=== PATIENT | female | born 1940 | race Caucasian/White ===

== ENCOUNTER 2017-09-07 12:54 | Emergency (ER) | payer MEDICARE, MEDICAID ==
[~2017-09-07] VITALS: Ht 167.6 cm; Wt 58.1 kg
[~2017-09-07 12:54] MED LIST: ADVAIR 250/501 EA INH; AMARYL4 MG PO; ANTIVERT/2525 M1 PO; ASPI-COR81 M1 PO; COMBIVENT1 ARO IH; DAYPRO600 M1 PO; DIABETA5 MG PO; FLEXERIL10 MG PO; LEVOFLOXACIN500 MG PO; MOBIC7.5 MG PO; Metformin Hydr500 MG PO; NICODERM21 MG/24 H TD; PERCOCET 325 MG1 TA7 PO; PRAVACHOL20 MG PO; PREDNICOT20 MG PO; PREDNISONE10 MG PO; SPIRIVA -- 3018 MCG PO; SYMBICORT1 AE1 INH; TUSSI ORGANIDI PO; VICODIN 5/500 505 MG PO; VICODIN 500 MG-1 TAB PO; ZESTRIL20 MG PO
[2017-09-07] MEDS ORDERED: NYST SUSP PO (14:30)
== END 2017-09-07 14:33 | disposition home or self-care (01) ==
LOC: ED 12:54
DX: B37.0 Candidal stomatitis (principal); F17.200 Nicotine dependence, unspecified, uncomplicated; Z90.710 Acquired absence of both cervix and uterus; Z79.899 Other long term (current) drug therapy; Z79.82 Long term (current) use of aspirin; Z88.2 Allergy status to sulfonamides

== ENCOUNTER 2017-11-24 16:44 | Inpatient (IN) | payer MEDICARE, MEDICAID ==
[~2017-11-24] VITALS: Ht 160 cm; Wt 56.8 kg
--- NOTE | ~2017-11-24 | PR ---
[place], [place] PROGRESS NOTE NAME: [facility]OVANI GOEL [facility] [id number] UNIT #: [id number] ROOM: 412 DOCTOR: CHARLOTTE VARGAS MD,NATE BIRTHDATE: [birth year] DOS: 11/26/2017 SUBJECTIVE: She has been noted with significant improvement and acute respiratory symptoms in the last 24 hours with cough and wheezing The patient's all symptoms have been improving. There were no symptoms of chest pain. She has not been noted any fever or chills. OBJECTIVE: VITAL SIGNS: The patient showed the temperature noted normal, respiratory rate 18, heart rate was also noted normal at 75 this morning and blood pressure 134/55. Pulse oxygen saturation on room air was 98-100% saturation at rest. HEENT: No acute change. NECK: Supple. CARDIOVASCULAR: S1 and S2 audible. LUNGS: The patient was noted without any crackles, rhonchi, or wheezing. Breaths are noted mildly decreased bilaterally. ABDOMEN: Soft and nontender. EXTREMITIES: Without any acute edema. LABORATORY DATA: CBC on 11/26/2017, WBC 19.7, hemoglobin 10, and platelet count 507,000. BMP was noted, glucose 150, BUN 18, creatinine 1.06, and sodium 134. IMPRESSION: Leukocytosis induced with corticosteroid with clinical improvement noted. The patient with acute tracheobronchitis and exacerbation of chronic obstructive pulmonary disease progressively. Low grade nicotine abuse. PLAN OF TREATMENT: The patient could be considered for home discharge on oral antibiotics and tapering prednisone. Outpatient followup of the patient to be scheduled. Usual care, other supportive plan of therapy and care. NATE PORTER MD CM:PNTRANS [phone] NATE VARGAS MD 11/26/[id number] interface
--- NOTE | ~2017-11-24 | CON ---
[place], [place] REPORT OF CONSULTATION NAME: GEOVANI GOEL REDWOOD LLCT #: [id number] UNIT #: [id number] ROOM: 412 DOCTOR: NATE WILSON MD BIRTHDATE: [birth year] DOS: 11/25/2017 PULMONARY CONSULTATION, EVALUATION, AND MANAGEMENT CONSULTATION REQUESTED BY: Hospitalist service. REASON FOR CONSULTATION: COPD exacerbation. HISTORY OF PRESENT ILLNESS: This is a 77-year-old white female who has been noted with a past history of COPD, contacted my office yesterday. The patient was noted with initial symptoms of chest congestion and cough about a week ago. Over the weekend, she started experiencing significant increased shortness of breath with increased wheezing. The cough has been noted gradual and progressive. The patient's symptoms were noted significantly worsened. The patient contacted my office. I did speak with the patient and noted with audible wheezing. She was advised to come to the hospital Emergency Room. She came into the Emergency Room, was assessed, and admitted to the hospital for further medical management. The cough of the patient currently noted moderate to severe, which was noted partially decreased from yesterday. The patient denies symptoms of chest pain. Wheezing of the patient reported intermittently. REVIEW OF SYSTEMS: Remaining systems were reviewed and are as follows: CONSTITUTIONAL: Fatigue and tiredness noted without symptoms of fever or chills. EYES: Denies any burning, redness, or tenderness. EARS, NOSE, AND THROAT SYMPTOMS: Denies sore throat, hoarseness, otalgia, and postnasal drainage. CARDIOVASCULAR: Denies anginal pain, edema, pain of the lower extremity, or palpitation. GASTROINTESTINAL: No dysphagia, nausea, vomiting, diarrhea, abdominal pain, hematemesis, melena, or hematochezia. GENITOURINARY: No symptoms of dysuria, suprapubic pain, or hematuria. MUSCULOSKELETAL:. The patient denied any joint pain, redness, or tenderness. SKIN: Denies abnormal lesions or rashes. MUSCULOSKELETAL: Noted without any acute deformities. Remaining systems were reviewed of the patient and they were noted all negative. PAST MEDICAL HISTORY: The patient was known with history of: 1. COPD. 2. Type 2 diabetes mellitus. 3. 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 4. Hypercholesterolemia. PAST SURGICAL HISTORY: 1. Hysterectomy without ovaries. 2. Therapeutic bronchoscopy that was done for the patient in 2011. SOCIAL HISTORY: The patient is . 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 Smoking started for the patient at the age of [age] years old, up to 2 packs of cigarettes per day. The patient still smokes 3 cigarettes a day. FAMILY HISTORY: The patient's father at age of 72 years due to complications of acute myocardial infarction. Mother at age of 73 years due to complications of metastatic lung cancer. One of the patient's brothers from the liver disease as well. HOME MEDICATIONS: Reported use of Symbicort, Flexeril, Amaryl, Combivent Respimat, lisinopril, meclizine, Meloxicam, metformin, Nystatin, pravastatin, prednisone 20 mg, Spiriva, aspirin, and other p.r.n. medications. DRUG ALLERGIES: NOTED ALLERGY TO SULFA DRUGS. PHYSICAL EXAMINATION: GENERAL: A 77-year-old white female who has been currently noted awake and alert at this time, resting in the bed without any acute distress on this morning of examination. VITAL SIGNS: Height recorded as 5 feet 3 inches, weight of 125 pounds, BMI 22. Vital signs for the patient, which has been recorded, showed the temperature noted normal since admission, respiratory rate 18-32, heart rate of 112-111, sinus tachycardia, blood pressure 132/79-155/60. The pulse oxygen saturation of the patient recorded as 98% on 3 liters nasal cannula on admission at rest, and at room air 91% saturation on walking noted. HEENT: Examination shows head was atraumatic. Eyes nonicterus. NECK: Supple. Oral mucosa moist. CARDIOVASCULAR: S1, S2 is audible. LUNGS: The patient noted with general reduction in breath sounds with moderate expiratory wheezing noted. There were no crackles heard. ABDOMEN: Flat, soft, nontender. Bowel sounds present. EXTREMITIES: Without any edema, clubbing, or cyanosis. CENTRAL NERVOUS SYSTEM: Cranial nerves 2-12 intact. No focal deficit. MUSCULOSKELETAL: Without deformity. SKIN: No lesions or any rashes. LABORATORY DATA: CMP of the patient from 11/24/2017 320 noted as BUN normal, creatinine was normal, glucose 137. Sodium 133. CBC of the patient from 11/24/2017, WBC count 12.7, hemoglobin 11.9, hematocrit 36.9, platelet count 558,000. The troponin of the patient was noted yesterday as normal. CMP this morning, glucose 247, BUN 11, creatinine 1.03. Sodium 132. CBC of the patient this morning, WBC count 11.4, hemoglobin 10.6, platelet count 496,000. IMAGING STUDIES: One view chest x-ray, which was done in the Emergency Room was reviewed from PACS images shows changes of COPD without any acute pulmonary infiltration. IMPRESSION: 1. The patient will be currently admitted to the hospital, noted with acute exacerbation of chronic obstructive pulmonary disease with acute bronchitis. 2. Low grade nicotine abuse for the patient was still noted. [place], [place] REPORT OF CONSULTATION NAME: GEOVANI GOEL UNIT #: [id number] ROOM: [facility] DOCTOR: CHARLOTTE VARGAS MD,[facility] BIRTHDATE: [birth year] 3. Uncontrolled diabetes mellitus for this patient secondary to use of the corticosteroids as well. 4. History of essential hypertension and other medical illnesses. PLAN OF TREATMENT: The patient has been started on Solu-Medrol at 60 mg q. 2 hours. The dose will be decreased to 40 mg q. 2 hours. The patient states partial reduction and improvement in the respiratory symptoms noted in the last 24 hours. This would also help to reduce the hyperglycemia as well. The Solu-Medrol will be changed to 40 mg q. 8 hours. Continue Zithromax for the patient for medical management of the acute community-acquired bronchitis. Continue use of the DuoNeb q. 4 hours. Sputum for Gram stain and culture will be ordered. Nicotine replacement patches have been already started for the patient previously, which will be continued to overcome the nicotine withdrawal. Additional treatment changes will be made on the patient based on progression of the illness on this hospitalization. Thank you for allowing me to participate in the care of this patient. NATE PORTER MD CM:CONSTR:REPORT OF CONSULTATION 1133 12/03/17 0947 interface
[~2017-11-24 16:44] MED LIST changes: +NYST SUSP PO
[2017-11-24 16:53] VITALS: BP 155/60
[2017-11-24 17:24] LABS: BASO # 0.1 10*3/uL (0.0-0.1); EOS # 0.4 10*3/uL (0.0-0.4); HEMATOCRIT 36.9 % (37.0-47.0); HEMOGLOBIN 11.9 g/dl (12.0-16.0); LYMPH # 1.8 10*3/uL (1.3-4.4); LYMPH % 14.2 % (27.0-41.0); MEAN CORPUSCULAR HGB 26.4 pg (27.0-31.0); MEAN CORPUSCULAR HGB CONC 32.2 g/dl (33.0-37.0); MEAN PLATELET VOLUME 11.9 fl (9.6-12.3); MONO # 0.5 10*3/uL (0.1-1.0); NEUT # 9.7 10*3/uL (2.3-7.9); NEUT % 76.6 % (47.0-73.0); PLATELET COUNT AUTOMATED 558 10*3/uL (130-400); RED CELL DISTRI WIDTH 17.9 % (0-14.5); WHITE BLOOD COUNT 12.7 10*3/uL (4.8-10.8)
[2017-11-24 17:43] LABS: ALBUMIN 3.9 gm/dl (3.1-4.5); ALKALINE PHOSPHATASE 118 U/L (45-117); BUN 11 mg/dl (7-24); CHLORIDE 100 mmol/L (98-107); CREATININE 0.99 mg/dL (0.55-1.02); POTASSIUM 3.8 mmol/L (3.5-5.1); SGOT/AST 16 IU/L (3-35); SGPT/ALT 22 U/L (12-78); SODIUM 133 mmol/L (136-145); TOTAL PROTEIN 7.5 gm/dL (6.4-8.2)
[2017-11-24 18:55] VITALS: BP 143/51
[2017-11-25] VITALS: BP 131/48
[2017-11-25] MEDS ORDERED: AMLODIPINE BESY10 MG PO (03:57)
[2017-11-25] MEDS ORDERED: LISINOPRIL30 MG PO (03:57)
[2017-11-25 06:34] LABS: HEMATOCRIT 32.2 % (37.0-47.0); HEMOGLOBIN 10.6 g/dl (12.0-16.0); MEAN CELL VOLUME 80.9 fl (81.0-99.0); MEAN CORPUSCULAR HGB 26.6 pg (27.0-31.0); MEAN CORPUSCULAR HGB CONC 32.9 g/dl (33.0-37.0); MEAN PLATELET VOLUME 12.7 fl (9.6-12.3); PLATELET COUNT AUTOMATED 496 10*3/uL (130-400); RED BLOOD COUNT 3.98 10*6/uL (4.10-5.10); RED CELL DISTRI WIDTH 17.8 % (0-14.5); WHITE BLOOD COUNT 11.4 10*3/uL (4.8-10.8)
[2017-11-25 06:48] LABS: ALBUMIN 3.4 gm/dl (3.1-4.5); ALKALINE PHOSPHATASE 103 U/L (45-117); BUN 11 mg/dl (7-24); CHLORIDE 101 mmol/L (98-107); CHOLESTEROL 139 mg/dL (<200); CREATININE 1.03 mg/dL (0.55-1.02); HDL CHOLESTEROL 48 mg/dl (40-60); LDL CHOLESTEROL 77 mg/dL (9-159); PHOSPHOROUS 2.8 mg/dL (2.5-4.9); POTASSIUM 4.3 mmol/L (3.5-5.1); SGOT/AST 11 IU/L (3-35); SGPT/ALT 21 U/L (12-78); SODIUM 132 mmol/L (136-145); TOTAL PROTEIN 6.6 gm/dL (6.4-8.2); TRIGLYCERIDES 72 mg/dl (<150); VLDL CHOLESTEROL 14 mg/dL (6-40)
[2017-11-25 06:53] LABS: THYROID STIM HORMONE (HS) 0.853 uIU/ml (0.358-4.75)
[2017-11-25 07:15] LABS: BASOPHILS 1 % (0-1); BURR CELLS FEW; OVALOCYTES FEW; PLATELET SUFFICIENCY HIGH (NORMAL); TOTAL CELLS COUNTED 100 #CELLS
[2017-11-25 08:00] VITALS: BP 133/79
[2017-11-25 08:15] LABS: VITAMIN D, 25-HYDROXY 27.2 ng/mL (30-100)
[2017-11-25 12:00] VITALS: BP 122/57
[2017-11-25 16:00] VITALS: BP 137/56
[2017-11-25 20:00] VITALS: BP 125/48
[2017-11-26] VITALS: BP 126/48
[2017-11-26 06:19] LABS: HEMATOCRIT 30.9 % (37.0-47.0); MEAN CELL VOLUME 81.5 fl (81.0-99.0); MEAN CORPUSCULAR HGB 26.4 pg (27.0-31.0); MEAN CORPUSCULAR HGB CONC 32.4 g/dl (33.0-37.0); MEAN PLATELET VOLUME 12.3 fl (9.6-12.3); PLATELET COUNT AUTOMATED 507 10*3/uL (130-400); RED BLOOD COUNT 3.79 10*6/uL (4.10-5.10); RED CELL DISTRI WIDTH 18.7 % (0-14.5); WHITE BLOOD COUNT 19.7 10*3/uL (4.8-10.8)
[2017-11-26 06:50] LABS: BUN 18 mg/dl (7-24); CHLORIDE 102 mmol/L (98-107); CREATININE 1.06 mg/dL (0.55-1.02); POTASSIUM 4.6 mmol/L (3.5-5.1); SODIUM 134 mmol/L (136-145)
[2017-11-26 06:52] LABS: BURR CELLS FEW; PLATELET SUFFICIENCY HIGH (NORMAL); POLYCHROMASIA SLIGHT; TOTAL CELLS COUNTED 100 #CELLS
[2017-11-26 08:00] VITALS: BP 134/55
[2017-11-26] MEDS ORDERED: PREDNISONE10 MG PO (10:48)
[2017-11-26] MEDS ORDERED: VITAMIN D-32000 UNIT PO (10:48)
[2017-11-26] MEDS ORDERED: DOXYCYCLINE100 M3 PO (10:48)
== END 2017-11-26 11:57 | disposition home or self-care (01) | DRG 871 ==
LOC: ED 16:44 → 4E 18:12 → EDHOLD 18:12 → 4E 18:18
PROVIDERS: Emergency Medicine; Hospitalist; Student in an Organized Health Care Education/Training Program
DX: A41.9 Sepsis, unspecified organism (principal); J96.00 Acute respiratory failure, unspecified whether with hypoxia or hypercapnia; J18.9 Pneumonia, unspecified organism; E11.65 Type 2 diabetes mellitus with hyperglycemia; D68.59 Other primary thrombophilia; G47.34 Idiopathic sleep related nonobstructive alveolar hypoventilation; E87.1 Hypo-osmolality and hyponatremia; Z99.81 Dependence on supplemental oxygen; J44.1 Chronic obstructive pulmonary disease with (acute) exacerbation; J44.0 Chronic obstructive pulmonary disease with (acute) lower respiratory infection; D72.829 Elevated white blood cell count, unspecified; D64.9 Anemia, unspecified; J20.9 Acute bronchitis, unspecified; I10 Essential (primary) hypertension; R65.20 Severe sepsis without septic shock; F17.200 Nicotine dependence, unspecified, uncomplicated; E78.00 Pure hypercholesterolemia, unspecified; T38.0X5A Adverse effect of glucocorticoids and synthetic analogues, initial encounter; Z88.2 Allergy status to sulfonamides; Z79.899 Other long term (current) drug therapy; Z90.710 Acquired absence of both cervix and uterus; Z82.3 Family history of stroke; Z80.1 Family history of malignant neoplasm of trachea, bronchus and lung; Z71.6 Tobacco abuse counseling; Y92.89 Other specified places as the place of occurrence of the external cause

== ENCOUNTER → 2018-02-11 | Outpatient (CLI) | payer MEDICARE, MEDICAID ==
[~2018-02-11] MED LIST changes: +AMLODIPINE BESY10 MG PO; +DOXYCYCLINE100 M3 PO; +LISINOPRIL30 MG PO; +VENTOLIN 02.5 MG/3 M INH; +VITAMIN D-32000 UNIT PO
== END | disposition home or self-care (01) ==
LOC: RAD 09:52
DX: M54.5 Low back pain (principal)

== ENCOUNTER → 2018-03-05 | Outpatient (CLI) | payer MEDICARE, MEDICAID ==
[2018-03-08 11:03] LABS: ANTI-DSDNA ANTIBODIES 096339 <1 IU/mL (0-9); ANTI-RNP ANTIBODIES <0.2 AI (0.0-0.9); ANTICHROMATIN ANTIBODIES <0.2 AI (0.0-0.9); ANTISCLERODERMA-70 AB <0.2 AI (0.0-0.9); SJOGREN ANTI-SS-A <0.2 AI (0.0-0.9); SJOREN AB, ANTI-SS-B <0.2 AI (0.0-0.9)
[2018-03-08 14:09] LABS: ANGIOTENSIN-CONVERTING ENZYME <15 U/L (14-82); ATYPICAL PANCA <1:20 titer (Neg:<1:20); CYTOPLASMIC (C-ANCA) <1:20 titer (Neg:<1:20); IGG SUBCLASS 1 561 mg/dL (248-810); IGG SUBCLASS 2 107 mg/dL (130-555); IGG SUBCLASS 3 89 mg/dL (15-102); IGG SUBCLASS 4 23 mg/dL (2-96); IMMUNOGLOBULIN G, QNT 668 mg/dL (700-1600)
[2018-03-09 00:03] LABS: BLASTOMYCES ANTIBODY Negative (Neg:<1:1); IMMUNOGLOBULIN IgE 002170 12 IU/mL (0-100)
[2018-03-10 15:04] LABS: COCCIDIOIDES IGG 0.1 IV (<=0.9); COCCIDIOIDES IGM 0.2 IV (<=0.9)
== END | disposition home or self-care (01) ==
LOC: LAB 10:30
PROVIDERS: Internal Medicine Critical Care Medicine
DX: R91.8 Other nonspecific abnormal finding of lung field (principal)

== ENCOUNTER → 2018-03-11 | Day surgery (SDC) | payer MEDICARE, MEDICAID ==
[~2018-03-11] VITALS: Ht 165.1 cm; Wt 55.8 kg
--- NOTE | ~2018-03-11 | PROC NOTE ---
[place], [place] PROCEDURE NOTE [facility] [id number] UNIT #: [id number] ROOM: DOCTOR: CHARLOTTE VARGAS MD,NATE BIRTHDATE: [birth year] DOS: 03/11/2018 BRONCHOSCOPY NOTE PREOPERATIVE DIAGNOSIS: The patient with coughing, evidence of bronchiectasis in the right lower lobe with a cluster of nodules. Rule out atypical infection. POSTOPERATIVE DIAGNOSES: The patient with coughing, evidence of bronchiectasis in the right lower lobe with a cluster of nodules. Rule out atypical infection. COMPLICATIONS: None. BLOOD LOSS: None. PROCEDURE DESCRIPTION: Informed consent obtained from the patient. The patient brought to the OR. Conscious sedation was given by the Anesthesia Department in supine position. After that, the bronchoscope advanced to the airway into laryngeal area. Epiglottis and vocal cords were seen. Vocal cords moving symmetrical with movements. Bronchoscope advanced to the vocal cord and tracheal lumen. Tracheal lumen noted a small amount of secretions, suctioned out. Anya noted sharp. Bronchial washing was taken from all the endobronchial tree for this patient successfully including in the right lower lobe endobronchial tree. No complication noted. There were no endobronchial obstructive lesion. Procedure well tolerated by the patient. Postoperative findings were discussed with the patient's family members in the recovery room. NATE PORTER MD CM:PROCNOTE:PROCEDURE NOTE [id number] NATE VARGAS MD
[2018-03-11 08:15] VITALS: BP 138/62
[2018-03-11 09:05] VITALS: BP 134/61
[2018-03-11 09:20] VITALS: BP 114/55
[2018-03-11 09:35] VITALS: BP 144/66
[2018-03-12 16:06] LABS: ACID FAST SPEC PROCESSING Concentration (.)
[2018-04-19 14:05] LABS: ACID FAST CULTURE Negative (.)
== END | disposition home or self-care (01) ==
LOC: SDC 03-09 08:45
PROVIDERS: Internal Medicine Critical Care Medicine
DX: J47.9 Bronchiectasis, uncomplicated (principal); J45.40 Moderate persistent asthma, uncomplicated; I10 Essential (primary) hypertension; E11.9 Type 2 diabetes mellitus without complications; F17.210 Nicotine dependence, cigarettes, uncomplicated; Z79.4 Long term (current) use of insulin; Z90.710 Acquired absence of both cervix and uterus; Z79.899 Other long term (current) drug therapy; Z98.890 Other specified postprocedural states; Z88.2 Allergy status to sulfonamides

== ENCOUNTER → 2018-05-05 | Outpatient (CLI) | payer MEDICARE, MEDICAID ==
[2018-05-05 10:03] LABS: BASO # 0.2 10*3/uL (0.0-0.1); BASO % 1.6 % (0.0-1.0); EOS # 0.3 10*3/uL (0.0-0.4); EOS % 2.2 % (1.0-4.0); HEMATOCRIT 37.4 % (37.0-47.0); HEMOGLOBIN 12.2 g/dl (12.0-16.0); LYMPH # 1.5 10*3/uL (1.3-4.4); MEAN CELL VOLUME 79.1 fl (81.0-99.0); MEAN CORPUSCULAR HGB 25.8 pg (27.0-31.0); MEAN CORPUSCULAR HGB CONC 32.6 g/dl (33.0-37.0); MEAN PLATELET VOLUME 11.6 fl (9.6-12.3); MONO # 0.6 10*3/uL (0.1-1.0); MONO % 4.5 % (3.0-9.0); NEUT # 9.5 10*3/uL (2.3-7.9); NEUT % 78.5 % (47.0-73.0); PLATELET COUNT AUTOMATED 591 10*3/uL (130-400); RED BLOOD COUNT 4.73 10*6/uL (4.10-5.10); WHITE BLOOD COUNT 12.1 10*3/uL (4.8-10.8)
[2018-05-05 10:29] LABS: ALBUMIN 3.8 gm/dl (3.1-4.5); ALKALINE PHOSPHATASE 95 U/L (45-117); BUN 14 mg/dl (7-24); CHLORIDE 98 mmol/L (98-107); CREATININE 1.01 mg/dL (0.55-1.02); SGOT/AST 20 IU/L (3-35); SGPT/ALT 19 U/L (12-78); SODIUM 129 mmol/L (136-145); TOTAL PROTEIN 7.2 gm/dL (6.4-8.2)
== END | disposition home or self-care (01) ==
LOC: LAB 09:32
PROVIDERS: Family Medicine
DX: R19.7 Diarrhea, unspecified (principal)

== ENCOUNTER 2019-09-18 14:08 | Inpatient (IN) | payer MEDICARE, MEDICAID ==
[~2019-09-18] VITALS: Ht 165.1 cm; Wt 57.0 kg
[2019-09-18 14:23] VITALS: BP 167/81
[2019-09-18 15:09] LABS: BASO # 0.1 10*3/uL (0.0-0.1); BASO % 0.6 % (0.0-1.0); EOS # 0.3 10*3/uL (0.0-0.4); EOS % 2.3 % (1.0-4.0); HEMATOCRIT 37.4 % (37.0-47.0); HEMOGLOBIN 11.6 g/dl (12.0-16.0); LYMPH # 1.4 10*3/uL (1.3-4.4); MEAN CORPUSCULAR HGB 25.4 pg (27.0-31.0); MEAN PLATELET VOLUME 11.9 fl (9.6-12.3); MONO # 0.5 10*3/uL (0.1-1.0); MONO % 3.2 % (3.0-9.0); NEUT # 11.8 10*3/uL (2.3-7.9); NEUT % 83.1 % (47.0-73.0); PLATELET COUNT AUTOMATED 533 10*3/uL (130-400); RED BLOOD COUNT 4.56 10*6/uL (4.10-5.10); WHITE BLOOD COUNT 14.2 10*3/uL (4.8-10.8)
[2019-09-18 15:32] LABS: ACT PARTIAL THROMBO TIME 27.9 SECONDS (20.0-32.1); INTERNATIONAL NORM RATIO 0.9 (2.0-3.5)
[2019-09-18 15:36] LABS: ALBUMIN 3.9 gm/dl (3.1-4.5); ALKALINE PHOSPHATASE 125 U/L (45-117); BUN 16 mg/dl (7-24); CHLORIDE 102 mmol/L (98-107); CREATININE 0.95 mg/dL (0.55-1.02); SGOT/AST 11 IU/L (3-35); SGPT/ALT 19 U/L (12-78); SODIUM 136 mmol/L (136-145); TOTAL PROTEIN 7.3 gm/dL (6.4-8.2)
[2019-09-18 15:38] LABS: TROPONIN I < 0.015 ng/ml (<0.045)
[2019-09-18 15:48] VITALS: BP 142/55
--- NOTE | 2019-09-18 16:10 | NUR ---
REPORT GIVEN TO ALLIE BEAULIEU AT THIS TIME.
--- NOTE | 2019-09-18 16:19 | NUR ---
UNABLE TO TAKE PATIENT TO 4TH FLOOR. ROOM ASSIGNMENT AND MONITOR STTUS HAS BEEN CHANGED AFTER INTIAL ORDER SENT AND REPORT HAD ALREADY BEEN CALLED FOR FLOAT NURSE TO TAKE PATIENT UPSTAIRS. WILL AWAIT ANOTHER BED ASSIGNMENT.
--- NOTE | 2019-09-18 16:58 | NUR ---
RUNNING TRAY ORDERED PER PT REQUEST
--- NOTE | 2019-09-18 17:28 | NUR ---
msTime: 1728 A 79 year old female admitted to 5E under services of DEEJAY GARCES DO. Pt. arrived via bed from ER. Chief complaint: chest pain and sob. LUCITA CADENA.
[2019-09-18] MEDS ORDERED: MELOXICAM7.5 MG PO (18:02)
--- NOTE | 2019-09-18 18:07 | NUR ---
MED REC REVIEWED WITH PATIENT
--- NOTE | 2019-09-18 18:20 | NUR ---
DR HATHAWAY INFORMED OF CRITICAL LACTIC. PATIENT RECEIVING IVF. WILL MONITOR
--- NOTE | 2019-09-18 19:31 | NUR ---
PT INSTRUCTED ON USE OF IS. PT SOB AT THIS TIME. THEREFORE, PT UNABLE TO PERFORM AT [employer] PERFORMANCE. PT ABLE TO ACHIVE 500 CC AT THIS TIME. PT ABLE TO DEMONSTRATE PROPER TECHNIQUE. PT INSTRUCTED TO USE IS Q 1-2 HR W/A WHEN SHE BREATHING IS LESS LABORED.
--- NOTE | 2019-09-18 19:46 | NUR ---
PATIENT IS RESTING IN BED WITH EASY AND REGULAR RESPERS ON 4.5L O2 VIA NC. ASSESSMENT IS COMPLETE WITH NO C/O OR S/S OF DISTRESS NOTED AT THIS TIME. BED IS LOW, LOCKED, AND CALL LIGHT IS WITHIN REACH. IV FLUIDS COMPLETE. WILL CONTINUE TO MONITOR, SEE SHIFT ASSESSMENT.
[2019-09-18 20:00] VITALS: BP 155/58
--- NOTE | 2019-09-18 22:30 | NUR ---
DR. CARVER CONTACTED AT THIS TIME IN REGARDS TO PATIENT HOME MEDICATIONS BEING CONTINUED. ORDERED TO CONTINUE PRAVASTATIN AND MOBIC, HE WILL LOOK AT THE REST.
[2019-09-19] VITALS: BP 136/55
--- NOTE | 2019-09-19 01:30 | NUR ---
PATIENT IS SLEEPING WITH EASY AND REGULAR RESPERS ON 4.5L VIA NC. CALL LIGHT IS WITHIN REACH.
--- NOTE | 2019-09-19 04:42 | NUR ---
CHART CHECK COMPLETE.
[2019-09-19 06:46] LABS: HEMATOCRIT 33.4 % (37.0-47.0); HEMOGLOBIN 10.4 g/dl (12.0-16.0); MEAN CELL VOLUME 81.5 fl (81.0-99.0); MEAN CORPUSCULAR HGB 25.4 pg (27.0-31.0); MEAN CORPUSCULAR HGB CONC 31.1 g/dl (33.0-37.0); MEAN PLATELET VOLUME 12.3 fl (9.6-12.3); PLATELET COUNT AUTOMATED 505 10*3/uL (130-400); RED CELL DISTRI WIDTH 19.6 % (0-14.5); WHITE BLOOD COUNT 15.2 10*3/uL (4.8-10.8)
[2019-09-19 07:01] LABS: CREATININE 1.08 mg/dL (0.55-1.02); POTASSIUM 4.4 mmol/L (3.5-5.1)
[2019-09-19 07:21] LABS: TOTAL CELLS COUNTED 100 #CELLS
[2019-09-19 07:22] LABS: PLATELET SUFFICIENCY HIGH (NORMAL); POLYCHROMASIA SLIGHT
[2019-09-19 08:00] VITALS: BP 139/56
--- NOTE | 2019-09-19 09:00 | NUR ---
Musical Therapist in to talk to patient. Patient states lives at home alone with her family checking in on her. There are 5 steps in the home. Physician: Dr. Lew, Dr. Osorio, and Dr. Spicer [facility]: none Patient's level of ADLs: MINIMAL ASSIST Patient has working utilities: yes DME: cane, O2 @ 3L [place], nebulizer, O2 supplier [employer] Follow-up physician's appointment after d/c: will be made by the hospitalist nurse director upon discharge Does patient want to access PORTAL?: no Discharge plan discussed with patient and her granddaughter who is at the bedside. She lives at home alone with her family checking in on her. She is independent in her ADLs and ambulates with a cane. Discussed home health care services and she denies any home needs at this time. When medically stable she will be discharged to home. Her granddaughter will provide transportation on discharge. ERNESTO MONROY
--- NOTE | 2019-09-19 11:19 | NUR ---
PHYSICIAN WAS NOTIFIED OF DR. CHARLOTTE OROPEZA. RESPONSE OF NOTIFICATION WAS OK THANK YOU. TACHO PERRY
[2019-09-19 12:00] VITALS: BP 138/52
--- NOTE | 2019-09-19 13:29 | NUR ---
HR ELEVATED, DR CRAVER MADE AWARE.
[2019-09-19 16:00] VITALS: BP 126/64
--- NOTE | 2019-09-19 19:00 | NUR ---
ASSUMED CARE FOR THIS PT AT THIS TIME. NO C/O VOICED. SITTING ON SIDE OF BED. CALL LIGHT IN REACH.
[2019-09-19 20:00] VITALS: BP 131/52
[2019-09-20] VITALS: BP 131/81
[2019-09-20 06:44] LABS: BASO # 0.1 10*3/uL (0.0-0.1); BASO % 0.4 % (0.0-1.0); EOS # 0.1 10*3/uL (0.0-0.4); HEMATOCRIT 33.7 % (37.0-47.0); HEMOGLOBIN 10.6 g/dl (12.0-16.0); LYMPH % 7.3 % (27.0-41.0); MEAN CELL VOLUME 81.8 fl (81.0-99.0); MEAN CORPUSCULAR HGB 25.7 pg (27.0-31.0); MEAN CORPUSCULAR HGB CONC 31.5 g/dl (33.0-37.0); MEAN PLATELET VOLUME 11.8 fl (9.6-12.3); MONO # 0.5 10*3/uL (0.1-1.0); MONO % 3.4 % (3.0-9.0); NEUT # 12.1 10*3/uL (2.3-7.9); NEUT % 86.5 % (47.0-73.0); PLATELET COUNT AUTOMATED 522 10*3/uL (130-400); RED BLOOD COUNT 4.12 10*6/uL (4.10-5.10); RED CELL DISTRI WIDTH 19.6 % (0-14.5)
[2019-09-20 07:19] LABS: BUN 18 mg/dl (7-24); CHLORIDE 108 mmol/L (98-107); CREATININE 0.98 mg/dL (0.55-1.02); POTASSIUM 4.5 mmol/L (3.5-5.1); SODIUM 141 mmol/L (136-145)
[2019-09-20 08:00] VITALS: BP 139/57
[2019-09-20 12:00] VITALS: BP 140/53
[2019-09-20 13:19] LABS: ABG BASE EXCESS 3.9 mmol/L (-2.0-2.0); ARTERIAL BLOOD GAS PH 7.449 (7.35-7.45)
--- NOTE | 2019-09-20 13:30 | NUR ---
DR PORTER NOTIFIED OF ABG RESULTS.
[2019-09-20 16:00] VITALS: BP 142/55
--- NOTE | 2019-09-20 19:00 | NUR ---
ASSUMED CARE FOR THIS PT AT THIS TIME. PT SITTING IN BED WATCHING TV. CALL LIGHT IN REACH.
[2019-09-20 20:00] VITALS: BP 130/86
--- NOTE | 2019-09-20 23:01 | NUR ---
24 HR chart check completed.
--- NOTE | 2019-09-20 23:13 | NUR ---
PT MEDICATED W/RESTORIL TO HELP PROMOTE SLEEP. LIGHTS TURNED OFF, BLIND TURNED DOWN, AND DOOR CLOSED. CALL LIGHT IN REACH.
[2019-09-21] VITALS: BP 143/60
[2019-09-21 07:12] LABS: CHLORIDE 105 mmol/L (98-107); POTASSIUM 4.5 mmol/L (3.5-5.1); SODIUM 140 mmol/L (136-145)
[2019-09-21 07:19] LABS: BASO # 0.1 10*3/uL (0.0-0.1); BASO % 0.9 % (0.0-1.0); EOS # 0.4 10*3/uL (0.0-0.4); EOS % 3.2 % (1.0-4.0); HEMATOCRIT 38.2 % (37.0-47.0); HEMOGLOBIN 11.8 g/dl (12.0-16.0); LYMPH # 1.1 10*3/uL (1.3-4.4); LYMPH % 8.5 % (27.0-41.0); MEAN CELL VOLUME 81.8 fl (81.0-99.0); MEAN CORPUSCULAR HGB 25.3 pg (27.0-31.0); MEAN CORPUSCULAR HGB CONC 30.9 g/dl (33.0-37.0); MONO # 0.5 10*3/uL (0.1-1.0); MONO % 4.1 % (3.0-9.0); NEUT # 10.3 10*3/uL (2.3-7.9); NEUT % 81.9 % (47.0-73.0); PLATELET COUNT AUTOMATED 628 10*3/uL (130-400); RED BLOOD COUNT 4.67 10*6/uL (4.10-5.10); RED CELL DISTRI WIDTH 19.8 % (0-14.5); WHITE BLOOD COUNT 12.6 10*3/uL (4.8-10.8)
[2019-09-21 07:28] LABS: BUN 14 mg/dl (7-24)
[2019-09-21 08:00] VITALS: BP 149/64
--- NOTE | 2019-09-21 08:44 | NUR ---
IN TO SEE PATIENT.
--- NOTE | 2019-09-21 10:14 | NUR ---
PT ASSESSED FOR HOME O2. RESTING ON RA: SPO2 80% HR 103 RESTING ON 3 L NC: SPO2 91-92% HR 103 AMBULATING ON 3 L NC: SPO2 84% HR 105 AMBULATING ON 4 L NC: SPO2 88-87 HR 106 AMBULATING ON 6 L NC: SPO2 90-92% HR 106 PT REQUIRES 3 L NC AT REST AND 6 L NC WITH AMBULATION
--- NOTE | 2019-09-21 10:30 | NUR ---
Public [facility]itarian in to see patient. No new needs or request at this time. She denies any home needs. When medically stable she will be discharged to home.
--- NOTE | 2019-09-21 10:30 | NUR ---
IN TO SEE PATIENT.
[2019-09-21] MEDS ORDERED: DOXYCYCLINE100 M3 PO (10:34)
[2019-09-21] MEDS ORDERED: PREDNISONE10 MG PO (10:34)
[2019-09-21] MEDS ORDERED: DEBROX15 ML OT (10:42)
[2019-09-21 12:00] VITALS: BP 128/56
--- NOTE | 2019-09-21 14:38 | NUR ---
PATIENT WAITING FOR 02 TANK TO ARRIVE PER ORDER PRIOR TO BEING DISCHARGED.
--- NOTE | 2019-09-21 17:01 | NUR ---
Discharge instructions reviewed with patient/family. Patient receptive and verbalizes understanding. Follow-up care arranged. Written instructions given to patient/family. LUCITA CADENA.
== END 2019-09-21 17:01 | disposition home or self-care (01) | DRG 871 ==
LOC: ED 14:08 → 5E 15:26 → EDHOLD 15:26 → 4E 15:59 → 5E 16:19
PROVIDERS: Emergency Medicine; Family Medicine; Internal Medicine Critical Care Medicine; Student in an Organized Health Care Education/Training Program; ADMIT Emergency Medicine
DX: A41.9 Sepsis, unspecified organism (principal); J96.01 Acute respiratory failure with hypoxia; J18.9 Pneumonia, unspecified organism; J44.1 Chronic obstructive pulmonary disease with (acute) exacerbation; E87.2 Acidosis; D68.59 Other primary thrombophilia; J44.0 Chronic obstructive pulmonary disease with (acute) lower respiratory infection; R65.20 Severe sepsis without septic shock; D64.9 Anemia, unspecified; I10 Essential (primary) hypertension; E78.5 Hyperlipidemia, unspecified; E11.65 Type 2 diabetes mellitus with hyperglycemia; G47.34 Idiopathic sleep related nonobstructive alveolar hypoventilation; F41.1 Generalized anxiety disorder; J20.9 Acute bronchitis, unspecified; E78.00 Pure hypercholesterolemia, unspecified; R91.8 Other nonspecific abnormal finding of lung field; Z99.81 Dependence on supplemental oxygen; Z87.891 Personal history of nicotine dependence; Z88.2 Allergy status to sulfonamides; Z90.710 Acquired absence of both cervix and uterus; Z80.1 Family history of malignant neoplasm of trachea, bronchus and lung; Z82.49 Family history of ischemic heart disease and other diseases of the circulatory system; Z79.82 Long term (current) use of aspirin; Z79.899 Other long term (current) drug therapy

== ENCOUNTER → 2020-07-10 | Outpatient (CLI) | payer MEDICARE, MEDICAID ==
[~2020-07-10] MED LIST changes: +DEBROX15 ML OT; +MELOXICAM7.5 MG PO
== END | disposition home or self-care (01) ==
LOC: RAD 10:23
PROVIDERS: ATTEND Family Medicine
DX: M47.816 Spondylosis without myelopathy or radiculopathy, lumbar region (principal); M48.061 Spinal stenosis, lumbar region without neurogenic claudication; M41.86 Other forms of scoliosis, lumbar region; I70.0 Atherosclerosis of aorta

== ENCOUNTER → 2021-05-16 | Outpatient (CLI) | payer MEDICARE, MEDICAID ==
[2021-05-16 12:56] LABS: BUN 13 mg/dl (7-24); CHLORIDE 98 mmol/L (98-107); CREATININE 0.96 mg/dL (0.55-1.02); POTASSIUM 4.2 mmol/L (3.5-5.1); SODIUM 131 mmol/L (136-145)
== END | disposition home or self-care (01) ==
LOC: LAB 12:08
PROVIDERS: Physical Therapist; ATTEND Family Medicine
DX: E87.1 Hypo-osmolality and hyponatremia (principal)

== ENCOUNTER 2022-01-12 13:09 | Emergency (ER) | payer MEDICARE, MEDICAID ==
[~2022-01-12] VITALS: Wt 49.9 kg
[~2022-01-12 13:09] MED LIST changes: +NAPROXEN250 MG PO; +OMNICEF300 MG PO; +OXYGEN NAS; +SYMB160 INH; -SYMBICORT1 AE1 INH; +ZITHROMAX250 MG PO
[2022-01-12 13:55] LABS: BASO # 0.1 10*3/uL (0.0-0.1); BASO % 0.6 % (0.0-1.0); EOS # 0.3 10*3/uL (0.0-0.4); EOS % 1.6 % (1.0-4.0); HEMATOCRIT 37.6 % (37.0-47.0); LYMPH # 1.1 10*3/uL (1.3-4.4); LYMPH % 6.2 % (27.0-41.0); MEAN CELL VOLUME 80.2 fl (81.0-99.0); MEAN CORPUSCULAR HGB 25.2 pg (27.0-31.0); MEAN CORPUSCULAR HGB CONC 31.4 g/dl (33.0-37.0); MEAN PLATELET VOLUME 11.8 fl (9.6-12.3); MONO # 0.5 10*3/uL (0.1-1.0); MONO % 2.8 % (3.0-9.0); NEUT # 15.5 10*3/uL (2.3-7.9); NEUT % 87.6 % (47.0-73.0); PLATELET COUNT AUTOMATED 774 10*3/uL (130-400); RED BLOOD COUNT 4.69 10*6/uL (4.10-5.10); RED CELL DISTRI WIDTH 20.6 % (0-14.5); WHITE BLOOD COUNT 17.7 10*3/uL (4.8-10.8)
[2022-01-12 14:10] LABS: CREATININE 1.17 mg/dL (0.55-1.02); TOTAL PROTEIN 6.8 gm/dL (6.4-8.2)
== END 2022-01-12 16:27 | disposition home or self-care (01) ==
LOC: ED 13:09
PROVIDERS: Physician Assistant
DX: E11.65 Type 2 diabetes mellitus with hyperglycemia (principal); J44.9 Chronic obstructive pulmonary disease, unspecified; I10 Essential (primary) hypertension; E78.00 Pure hypercholesterolemia, unspecified

== ENCOUNTER → 2022-12-11 | Outpatient (CLI) | payer OTHER, MEDICAID | LOC: RAD 12:31 | PROVIDERS: ATTEND Family Medicine | DX: M47.817 Spondylosis without myelopathy or radiculopathy, lumbosacral region (principal); M25.78 Osteophyte, vertebrae; M43.8X7 Other specified deforming dorsopathies, lumbosacral region; M48.061 Spinal stenosis, lumbar region without neurogenic claudication; I70.0 Atherosclerosis of aorta; I70.202 Unspecified atherosclerosis of native arteries of extremities, left leg ==

== ENCOUNTER 2023-01-19 13:59 | Emergency (ER) | payer OTHER, MEDICAID ==
[~2023-01-19] VITALS: Ht 162.5 cm; Wt 45.8 kg
[2023-01-19 15:42] LABS: HEMATOCRIT 33.2 % (37.0-47.0); MEAN CELL VOLUME 84.1 fl (81.0-99.0); MEAN CORPUSCULAR HGB 26.1 pg (27.0-31.0); MEAN PLATELET VOLUME 11.9 fl (9.6-12.3); PLATELET COUNT AUTOMATED 462 10*3/uL (130-400); RED BLOOD COUNT 3.95 10*6/uL (4.10-5.10); RED CELL DISTRI WIDTH 18.6 % (0-14.5); WHITE BLOOD COUNT 14.8 10*3/uL (4.8-10.8)
[2023-01-19 15:47] LABS: MANUAL DIFF REFLEX YES
[2023-01-19 16:06] LABS: BASOPHILS 1 % (0-1); TOTAL CELLS COUNTED 100 #CELLS
[2023-01-19 16:07] LABS: ALKALINE PHOSPHATASE 114 U/L (46-116); BUN 26 mg/dl (9-23); CHLORIDE 96 mmol/L (98-107); OVALOCYTES FEW; PLATELET SUFFICIENCY HIGH (NORMAL); POLYCHROMASIA SLIGHT; POTASSIUM 4.7 mmol/L (3.4-5.1); TOXIC GRANULATION SLIGHT
[2023-01-19 16:09] LABS: SGPT/ALT < 7 U/L (10-49)
[2023-01-19] MEDS ORDERED: PREDNISONE20 M1 PO (17:39)
[2023-01-19] MEDS ORDERED: DOXYCYCLINE HY100 M3 PO (17:39)
== END 2023-01-19 17:58 | disposition home or self-care (01) ==
LOC: ED 13:59
PROVIDERS: Nurse Practitioner Family
DX: J06.9 Acute upper respiratory infection, unspecified (principal); R53.83 Other fatigue; J44.9 Chronic obstructive pulmonary disease, unspecified; E11.9 Type 2 diabetes mellitus without complications; I10 Essential (primary) hypertension; E78.00 Pure hypercholesterolemia, unspecified; Z88.2 Allergy status to sulfonamides; Z88.8 Allergy status to other drugs, medicaments and biological substances; Z90.710 Acquired absence of both cervix and uterus; Z98.890 Other specified postprocedural states; Z72.0 Tobacco use

== ENCOUNTER → 2023-02-10 | Outpatient (CLI) | payer OTHER, MEDICAID ==
[~2023-02-10] MED LIST changes: +DOXYCYCLINE HY100 M3 PO; +PREDNISONE20 M1 PO
== END | disposition home or self-care (01) ==
LOC: RAD 09:07
PROVIDERS: ATTEND Family Medicine
DX: M47.816 Spondylosis without myelopathy or radiculopathy, lumbar region (principal)

== ENCOUNTER → 2023-05-18 | Outpatient (CLI) | payer OTHER, MEDICAID | END | disposition home or self-care (01) | LOC: RAD 12:28 | PROVIDERS: ATTEND Family Medicine | DX: J44.1 Chronic obstructive pulmonary disease with (acute) exacerbation (principal) ==

== ENCOUNTER → 2023-07-29 | Outpatient (CLI) | payer OTHER, MEDICAID | END | disposition home or self-care (01) | LOC: US 01:27 | PROVIDERS: ATTEND Family Medicine | DX: N18.9 Chronic kidney disease, unspecified (principal); N20.0 Calculus of kidney ==

== ENCOUNTER → 2023-11-23 | Outpatient (CLI) | payer OTHER, MEDICAID ==
[~2023-11-23] MED LIST changes: +CYCLOBENZAPRINE5 M3 PO; +NICODERM CQ1 EAC2 TD; +SPIRIVA RESPIMAT4 GM INH; +VIBRA-TAB100 MG PO
== END | disposition home or self-care (01) ==
LOC: US 15:52
PROVIDERS: ATTEND Student in an Organized Health Care Education/Training Program
DX: R22.43 Localized swelling, mass and lump, lower limb, bilateral (principal)

== ENCOUNTER 2023-12-13 21:10 | Emergency (ER) | payer OTHER, MEDICAID ==
[~2023-12-13] VITALS: Ht 152.4 cm; Wt 39.9 kg
[2023-12-13] MEDS ORDERED: OXYCODONE HCL5 MG PO (21:23)
[2023-12-13 21:37] LABS: BASO # 0.2 10*3/uL (0.0-0.1); BASO % 0.9 % (0.0-1.0); EOS # 0.3 10*3/uL (0.0-0.4); EOS % 1.3 % (1.0-4.0); HEMATOCRIT 36.9 % (37.0-47.0); LYMPH # 1.2 10*3/uL (1.3-4.4); LYMPH % 6.1 % (27.0-41.0); MEAN CELL VOLUME 84.8 fl (81.0-99.0); MEAN CORPUSCULAR HGB CONC 30.6 g/dl (33.0-37.0); MEAN PLATELET VOLUME 10.4 fl (9.6-12.3); MONO # 0.9 10*3/uL (0.1-1.0); MONO % 4.8 % (3.0-9.0); NEUT # 16.8 10*3/uL (2.3-7.9); NEUT % 86.1 % (47.0-73.0); PLATELET COUNT AUTOMATED 885 10*3/uL (130-400); RED BLOOD COUNT 4.35 10*6/uL (4.10-5.10); RED CELL DISTRI WIDTH 17.2 % (0-14.5); WHITE BLOOD COUNT 19.5 10*3/uL (4.8-10.8)
[2023-12-13 22:04] LABS: ALKALINE PHOSPHATASE 102 U/L (46-116); BUN 23 mg/dl (9-23); CHLORIDE 105 mmol/L (98-107); LIPASE 49 U/L (12-53); POTASSIUM 4.1 mmol/L (3.4-5.1); TOTAL PROTEIN 6.4 gm/dL (6.0-8.0)
[2023-12-13 22:05] LABS: SGPT/ALT < 7 U/L (5-49)
[2023-12-14] MEDS ORDERED: SODIUM CHLORIDE 0.9% 1,000 ML IV ONE (01:00)
== END 2023-12-14 05:26 | disposition short-term general hospital (02) ==
LOC: ED 21:10
PROVIDERS: Internal Medicine
DX: K56.1 Intussusception (principal); D47.3 Essential (hemorrhagic) thrombocythemia; D72.829 Elevated white blood cell count, unspecified; N28.89 Other specified disorders of kidney and ureter; E11.22 Type 2 diabetes mellitus with diabetic chronic kidney disease; I12.9 Hypertensive chronic kidney disease with stage 1 through stage 4 chronic kidney disease, or unspecified chronic kidney disease; N18.32 Chronic kidney disease, stage 3b; J44.9 Chronic obstructive pulmonary disease, unspecified; E78.00 Pure hypercholesterolemia, unspecified; R11.2 Nausea with vomiting, unspecified; R63.0 Anorexia; Z88.2 Allergy status to sulfonamides; Z88.8 Allergy status to other drugs, medicaments and biological substances; Z90.710 Acquired absence of both cervix and uterus; Z98.890 Other specified postprocedural states; Z72.0 Tobacco use

== ENCOUNTER → 2023-12-24 | Outpatient (CLI) | payer OTHER, MEDICAID ==
[~2023-12-24] MED LIST changes: +OXYCODONE HCL5 MG PO
== END | disposition home or self-care (01) ==
LOC: WOUNDCARE 02:45
PROVIDERS: ATTEND Nurse Practitioner Family
DX: L89.610 Pressure ulcer of right heel, unstageable (principal); E11.622 Type 2 diabetes mellitus with other skin ulcer; L97.512 Non-pressure chronic ulcer of other part of right foot with fat layer exposed; L97.522 Non-pressure chronic ulcer of other part of left foot with fat layer exposed; E11.22 Type 2 diabetes mellitus with diabetic chronic kidney disease; I12.9 Hypertensive chronic kidney disease with stage 1 through stage 4 chronic kidney disease, or unspecified chronic kidney disease; N18.32 Chronic kidney disease, stage 3b; I87.2 Venous insufficiency (chronic) (peripheral); E78.5 Hyperlipidemia, unspecified; E55.9 Vitamin D deficiency, unspecified; J44.9 Chronic obstructive pulmonary disease, unspecified; M16.12 Unilateral primary osteoarthritis, left hip; M47.816 Spondylosis without myelopathy or radiculopathy, lumbar region; L84 Corns and callosities; F17.290 Nicotine dependence, other tobacco product, uncomplicated; Z90.710 Acquired absence of both cervix and uterus; Z79.84 Long term (current) use of oral hypoglycemic drugs; Z79.82 Long term (current) use of aspirin; Z79.899 Other long term (current) drug therapy

== ENCOUNTER → 2023-12-29 | Outpatient (CLI) | payer OTHER, MEDICAID | END | disposition home or self-care (01) | LOC: WOUNDCARE 00:49 | PROVIDERS: ATTEND Nurse Practitioner Family | DX: E11.622 Type 2 diabetes mellitus with other skin ulcer (principal); L97.521 Non-pressure chronic ulcer of other part of left foot limited to breakdown of skin; L97.511 Non-pressure chronic ulcer of other part of right foot limited to breakdown of skin; L89.610 Pressure ulcer of right heel, unstageable; L84 Corns and callosities; E11.22 Type 2 diabetes mellitus with diabetic chronic kidney disease; I12.9 Hypertensive chronic kidney disease with stage 1 through stage 4 chronic kidney disease, or unspecified chronic kidney disease; N18.32 Chronic kidney disease, stage 3b; I87.2 Venous insufficiency (chronic) (peripheral); E78.5 Hyperlipidemia, unspecified; E55.9 Vitamin D deficiency, unspecified; J44.9 Chronic obstructive pulmonary disease, unspecified; M16.12 Unilateral primary osteoarthritis, left hip; M47.816 Spondylosis without myelopathy or radiculopathy, lumbar region; F17.290 Nicotine dependence, other tobacco product, uncomplicated; Z90.710 Acquired absence of both cervix and uterus; Z79.84 Long term (current) use of oral hypoglycemic drugs; Z79.82 Long term (current) use of aspirin; Z79.899 Other long term (current) drug therapy ==

== ENCOUNTER → 2024-01-15 | Outpatient (CLI) | payer OTHER, MEDICAID | END | disposition home or self-care (01) | LOC: WOUNDCARE 01-13 05:35 | PROVIDERS: ATTEND Nurse Practitioner Family | DX: L89.610 Pressure ulcer of right heel, unstageable (principal); E11.621 Type 2 diabetes mellitus with foot ulcer; L97.521 Non-pressure chronic ulcer of other part of left foot limited to breakdown of skin; I87.2 Venous insufficiency (chronic) (peripheral); E11.22 Type 2 diabetes mellitus with diabetic chronic kidney disease; I12.9 Hypertensive chronic kidney disease with stage 1 through stage 4 chronic kidney disease, or unspecified chronic kidney disease; N18.32 Chronic kidney disease, stage 3b; J44.9 Chronic obstructive pulmonary disease, unspecified; E78.5 Hyperlipidemia, unspecified; M85.80 Other specified disorders of bone density and structure, unspecified site; M19.90 Unspecified osteoarthritis, unspecified site; F17.200 Nicotine dependence, unspecified, uncomplicated; Z90.710 Acquired absence of both cervix and uterus ==

== ENCOUNTER → 2024-02-03 | Outpatient (CLI) | payer OTHER, MEDICAID | END | disposition home or self-care (01) | LOC: WOUNDCARE 01:27 | PROVIDERS: ATTEND Nurse Practitioner Family | DX: L89.610 Pressure ulcer of right heel, unstageable (principal); E11.621 Type 2 diabetes mellitus with foot ulcer; L97.522 Non-pressure chronic ulcer of other part of left foot with fat layer exposed; E11.22 Type 2 diabetes mellitus with diabetic chronic kidney disease; I12.9 Hypertensive chronic kidney disease with stage 1 through stage 4 chronic kidney disease, or unspecified chronic kidney disease; N18.32 Chronic kidney disease, stage 3b; I87.2 Venous insufficiency (chronic) (peripheral); J44.9 Chronic obstructive pulmonary disease, unspecified; E78.5 Hyperlipidemia, unspecified; E55.9 Vitamin D deficiency, unspecified; M16.12 Unilateral primary osteoarthritis, left hip; M47.816 Spondylosis without myelopathy or radiculopathy, lumbar region; F17.200 Nicotine dependence, unspecified, uncomplicated; Z90.710 Acquired absence of both cervix and uterus; Z79.82 Long term (current) use of aspirin; Z79.84 Long term (current) use of oral hypoglycemic drugs; Z79.899 Other long term (current) drug therapy ==

== ENCOUNTER → 2024-02-12 | Outpatient (CLI) | payer OTHER, MEDICAID ==
[2024-02-12 13:04] LABS: POTASSIUM 5.1 mmol/L (3.4-5.1); TOTAL PROTEIN 7.1 gm/dL (6.0-8.0)
== END | disposition home or self-care (01) ==
LOC: LAB 12:12
PROVIDERS: ATTEND Internal Medicine Cardiovascular Disease
DX: S91.301A Unspecified open wound, right foot, initial encounter (principal); E11.9 Type 2 diabetes mellitus without complications; I10 Essential (primary) hypertension; R60.0 Localized edema; X58.XXXA Exposure to other specified factors, initial encounter; Y93.89 Activity, other specified; Y92.89 Other specified places as the place of occurrence of the external cause; Y99.8 Other external cause status

== ENCOUNTER → 2024-02-18 | Outpatient (CLI) | payer OTHER, MEDICAID | END | disposition home or self-care (01) | LOC: WOUNDCARE 01:40 | PROVIDERS: ATTEND Nurse Practitioner Family | DX: E11.621 Type 2 diabetes mellitus with foot ulcer (principal); L97.521 Non-pressure chronic ulcer of other part of left foot limited to breakdown of skin; L89.610 Pressure ulcer of right heel, unstageable; E11.22 Type 2 diabetes mellitus with diabetic chronic kidney disease; I12.9 Hypertensive chronic kidney disease with stage 1 through stage 4 chronic kidney disease, or unspecified chronic kidney disease; N18.32 Chronic kidney disease, stage 3b; I87.2 Venous insufficiency (chronic) (peripheral); J44.9 Chronic obstructive pulmonary disease, unspecified; E78.5 Hyperlipidemia, unspecified; E55.9 Vitamin D deficiency, unspecified; M16.12 Unilateral primary osteoarthritis, left hip; M47.816 Spondylosis without myelopathy or radiculopathy, lumbar region; F17.200 Nicotine dependence, unspecified, uncomplicated; Z90.710 Acquired absence of both cervix and uterus; Z79.82 Long term (current) use of aspirin; Z79.84 Long term (current) use of oral hypoglycemic drugs; Z79.899 Other long term (current) drug therapy ==

== ENCOUNTER → 2024-02-29 | Outpatient (CLI) | payer OTHER, MEDICAID | END | disposition home or self-care (01) | LOC: WOUNDCARE 00:09 | PROVIDERS: ATTEND Nurse Practitioner Family | DX: E11.621 Type 2 diabetes mellitus with foot ulcer (principal); L97.521 Non-pressure chronic ulcer of other part of left foot limited to breakdown of skin; L89.623 Pressure ulcer of left heel, stage 3; L89.613 Pressure ulcer of right heel, stage 3; L84 Corns and callosities; E11.22 Type 2 diabetes mellitus with diabetic chronic kidney disease; I12.9 Hypertensive chronic kidney disease with stage 1 through stage 4 chronic kidney disease, or unspecified chronic kidney disease; N18.30 Chronic kidney disease, stage 3 unspecified; I87.2 Venous insufficiency (chronic) (peripheral); J44.9 Chronic obstructive pulmonary disease, unspecified; M16.12 Unilateral primary osteoarthritis, left hip; M47.816 Spondylosis without myelopathy or radiculopathy, lumbar region; E78.5 Hyperlipidemia, unspecified; E55.9 Vitamin D deficiency, unspecified; F17.200 Nicotine dependence, unspecified, uncomplicated; Z90.710 Acquired absence of both cervix and uterus; Z79.84 Long term (current) use of oral hypoglycemic drugs; Z79.82 Long term (current) use of aspirin ==

== ENCOUNTER → 2024-03-22 | Outpatient (CLI) | payer OTHER, MEDICAID | END | disposition home or self-care (01) | LOC: WOUNDCARE 01:44 | PROVIDERS: ATTEND Nurse Practitioner Family | DX: E11.621 Type 2 diabetes mellitus with foot ulcer (principal); L97.522 Non-pressure chronic ulcer of other part of left foot with fat layer exposed; L89.613 Pressure ulcer of right heel, stage 3; L89.623 Pressure ulcer of left heel, stage 3; L84 Corns and callosities; E11.22 Type 2 diabetes mellitus with diabetic chronic kidney disease; I12.9 Hypertensive chronic kidney disease with stage 1 through stage 4 chronic kidney disease, or unspecified chronic kidney disease; N18.32 Chronic kidney disease, stage 3b; I87.2 Venous insufficiency (chronic) (peripheral); J44.9 Chronic obstructive pulmonary disease, unspecified; M16.12 Unilateral primary osteoarthritis, left hip; M47.816 Spondylosis without myelopathy or radiculopathy, lumbar region; E78.5 Hyperlipidemia, unspecified; E55.9 Vitamin D deficiency, unspecified; F17.200 Nicotine dependence, unspecified, uncomplicated; Z90.710 Acquired absence of both cervix and uterus; Z79.84 Long term (current) use of oral hypoglycemic drugs; Z79.82 Long term (current) use of aspirin; Z79.899 Other long term (current) drug therapy ==

== ENCOUNTER 2024-04-09 14:41 | Inpatient (IN) | payer OTHER, MEDICAID ==
[~2024-04-09] VITALS: Ht 152.4 cm; Wt 45.1 kg
[2024-04-09 14:47] VITALS: BP 177/55
[2024-04-09] MEDS ORDERED: Ondansetron Hydrochloride 4 MG/2 ML VIAL IV ONE (14:55)
[2024-04-09] MEDS ORDERED: MORPHINE Sulfate 2 MG/ML SYR IV ONE (14:55)
[2024-04-09] MEDS ORDERED: SODIUM CHLORIDE 0.9% 1,000 ML IV ONE ×2 (14:55→18:30)
[2024-04-09 15:20] LABS: BASO % 0.9 % (0.0-1.0); EOS # 0.1 10*3/uL (0.0-0.4); EOS % 1.8 % (1.0-4.0); HEMATOCRIT 23.7 % (37.0-47.0); LYMPH # 1.2 10*3/uL (1.3-4.4); LYMPH % 26.6 % (27.0-41.0); MEAN CELL VOLUME 82.3 fl (81.0-99.0); MEAN CORPUSCULAR HGB 25.7 pg (27.0-31.0); MEAN CORPUSCULAR HGB CONC 31.2 g/dl (33.0-37.0); MEAN PLATELET VOLUME 10.6 fl (9.6-12.3); MONO # 0.2 10*3/uL (0.1-1.0); MONO % 3.8 % (3.0-9.0); NEUT % 66.5 % (47.0-73.0); PLATELET COUNT AUTOMATED 149 10*3/uL (130-400); RED BLOOD COUNT 2.88 10*6/uL (4.10-5.10); WHITE BLOOD COUNT 4.5 10*3/uL (4.8-10.8)
[2024-04-09 15:33] LABS: POTASSIUM 4.8 mmol/L (3.4-5.1)
[2024-04-09] MEDS ORDERED: FAMOTIDINE 50 ML IV ONE (15:50)
[2024-04-09] MEDS ORDERED: Pantoprazole Sodium 40 MG VIAL IV ONE (15:50)
[2024-04-09] MEDS ORDERED: HYDREA500 M1 PO (16:04)
[2024-04-09] MEDS ORDERED: COREG3.125 MG PO (16:07)
[2024-04-09] MEDS ORDERED: POTASSIUM CHLO20 ME3 PO (16:09)
[2024-04-09] MEDS ORDERED: LASIX20 MG PO (16:09)
[2024-04-09] MEDS ORDERED: ZESTRIL40 MG PO (16:10)
[2024-04-09] MEDS ORDERED: ACETAMINOPHEN 325 MG TAB PO PRN (18:15)
[2024-04-09] MEDS ORDERED: BISACODYL 10 MG SUPP R PRN (18:15)
[2024-04-09] MEDS ORDERED: ACETAMINOPHEN 650 MG SUPP R PRN (18:15)
[2024-04-09] MEDS ORDERED: Magnesium Hydroxide 30 ML UDC PO PRN (18:15)
[2024-04-09] MEDS ORDERED: Acetaminophen/Hydrocodone 5 MG/325 MG TABLET PO PRN (18:15)
[2024-04-09] MEDS ORDERED: BISACODYL 5 MG TAB PO PRN (18:15)
[2024-04-09 18:35] VITALS: BP 163/66
[2024-04-09] MEDS ORDERED: DEXTROSE 10 % IN WATER 250 ML IV PRN (18:45)
[2024-04-09 21:19] VITALS: BP 169/57
[2024-04-09 21:34] VITALS: BP 184/57
[2024-04-09] MEDS ORDERED: INSULIN LISPRO 1 UNIT/0.01 ML SQ SCH (22:00)
[2024-04-09] MEDS ORDERED: SODIUM CHLORIDE Nasal 44 ml bottle NAS PRN (22:25)
[2024-04-09] MEDS ORDERED: Ondansetron Hydrochloride 4 MG/2 ML VIAL IV PRN (22:25)
[2024-04-09 22:56] VITALS: BP 136/78
[2024-04-09] MEDS ORDERED: MORPHINE Sulfate 2 MG/ML SYR IV PRN (23:35)
[2024-04-10] VITALS (11 sets, daily range): BP systolic 144–173; BP diastolic 45–69
[2024-04-10] MEDS ORDERED: Albuterol Sulf/Ipratropium 3 ML VIAL NEB SCH (04:05)
[2024-04-10] MEDS ORDERED: BUDESONIDE 0.5 MG AMP NEB SCH (04:05)
[2024-04-10] MEDS ORDERED: Labetalol Hydrochloride 20 MG/4 ML SYR IV ONE (04:15)
[2024-04-10 05:27] LABS: ACT PARTIAL THROMBO TIME 27.5 SECONDS (20.0-32.1)
[2024-04-10 05:35] LABS: POTASSIUM 4.7 mmol/L (3.4-5.1)
[2024-04-10 06:00] LABS: MEAN CELL VOLUME 80.2 fl (81.0-99.0); MEAN CORPUSCULAR HGB 25.5 pg (27.0-31.0); MEAN CORPUSCULAR HGB CONC 31.8 g/dl (33.0-37.0); MEAN PLATELET VOLUME 10.8 fl (9.6-12.3); PLATELET COUNT AUTOMATED 126 10*3/uL (130-400); RED BLOOD COUNT 2.47 10*6/uL (4.10-5.10); RED CELL DISTRI WIDTH 24.1 % (0-14.5); WHITE BLOOD COUNT 2.6 10*3/uL (4.8-10.8)
[2024-04-10 06:11] LABS: HEMATOCRIT 19.8 % (37.0-47.0); MANUAL DIFF REFLEX YES
[2024-04-10 07:10] LABS: OVALOCYTES FEW; PLATELET SUFFICIENCY LOW (NORMAL); POLYCHROMASIA SLIGHT; TOTAL CELLS COUNTED 100 #CELLS
[2024-04-10 07:11] LABS: MICROCYTOSIS SLIGHT
[2024-04-10] MEDS ORDERED: SODIUM CHLORIDE 0.9% 500 ML IV ONE ×2 (08:13→08:15)
[2024-04-10] MEDS ORDERED: TIOTROPIUM BROMIDE 18 MCG CAPSULES INHALER INH SCH (10:00)
[2024-04-10] MEDS ORDERED: ASPIRIN, CHEWABLE 81 MG TAB PO SCH (10:00)
[2024-04-10] MEDS ORDERED: amLODIPine besylate 5 MG TAB PO SCH (10:00)
[2024-04-10] MEDS ORDERED: CARVEDILOL 3.125 MG TAB PO SCH (10:00)
[2024-04-10] MEDS ORDERED: Budesonide/Formoterol Fumarate 160/4.5 inhaler INH SCH (10:00)
[2024-04-10] MEDS ORDERED: FUROSEMIDE 20 MG TAB PO SCH (10:00)
[2024-04-10] MEDS ORDERED: HYDROXYUREA 500 MG CAP PO SCH (10:00)
[2024-04-10] MEDS ORDERED: Promethazine Hydrochloride 25 MG/ML VIAL IV PRN (11:30)
[2024-04-10] MEDS ORDERED: Piperacillin Sodium/Tazobact 2.25 GM in SODIUM CHLORIDE 0.9% 50 ML IV SCH (12:00)
[2024-04-10] MEDS ORDERED: VANCOMYCIN/WATER FOR INJ (PEG) 150 ML IV SCH (13:00)
[2024-04-10 14:52] LABS: BASO % 0.8 % (0.0-1.0); EOS % 1.1 % (1.0-4.0); HEMATOCRIT 26.5 % (37.0-47.0); LYMPH # 0.7 10*3/uL (1.3-4.4); LYMPH % 20.1 % (27.0-41.0); MEAN CELL VOLUME 82.3 fl (81.0-99.0); MEAN CORPUSCULAR HGB CONC 32.8 g/dl (33.0-37.0); MEAN PLATELET VOLUME 9.9 fl (9.6-12.3); MONO # 0.1 10*3/uL (0.1-1.0); MONO % 3.3 % (3.0-9.0); NEUT # 2.7 10*3/uL (2.3-7.9); NEUT % 74.1 % (47.0-73.0); PLATELET COUNT AUTOMATED 128 10*3/uL (130-400); RED BLOOD COUNT 3.22 10*6/uL (4.10-5.10); RED CELL DISTRI WIDTH 24.2 % (0-14.5); WHITE BLOOD COUNT 3.6 10*3/uL (4.8-10.8)
[2024-04-10] MEDS ORDERED: Pantoprazole Sodium 40 MG VIAL IV SCH (18:00)
[2024-04-10] MEDS ORDERED: CARVEDILOL 6.25 MG TAB PO SCH (22:00)
[2024-04-11] VITALS: BP 160/60
[2024-04-11 06:38] LABS: BASO % 0.8 % (0.0-1.0); EOS # 0.1 10*3/uL (0.0-0.4); EOS % 1.9 % (1.0-4.0); HEMATOCRIT 27.3 % (37.0-47.0); LYMPH % 28.3 % (27.0-41.0); MEAN CORPUSCULAR HGB 26.2 pg (27.0-31.0); MEAN CORPUSCULAR HGB CONC 31.1 g/dl (33.0-37.0); MEAN PLATELET VOLUME 10.5 fl (9.6-12.3); MONO # 0.2 10*3/uL (0.1-1.0); MONO % 4.2 % (3.0-9.0); NEUT # 2.3 10*3/uL (2.3-7.9); NEUT % 64.2 % (47.0-73.0); PLATELET COUNT AUTOMATED 135 10*3/uL (130-400); RED BLOOD COUNT 3.25 10*6/uL (4.10-5.10); RED CELL DISTRI WIDTH 24.2 % (0-14.5); WHITE BLOOD COUNT 3.6 10*3/uL (4.8-10.8)
[2024-04-11 06:59] LABS: ALKALINE PHOSPHATASE 82 U/L (46-116); CHLORIDE 105 mmol/L (98-107); POTASSIUM 4.8 mmol/L (3.4-5.1); TOTAL PROTEIN 6.4 gm/dL (6.0-8.0)
[2024-04-11 07:12] LABS: BUN 30 mg/dl (9-23); SGPT/ALT < 7 U/L (5-49)
[2024-04-11 08:00] VITALS: BP 154/62
[2024-04-11 12:00] VITALS: BP 152/59
[2024-04-11 16:00] VITALS: BP 132/60
[2024-04-11 20:00] VITALS: BP 160/69
[2024-04-12] VITALS: BP 164/75
[2024-04-12 06:23] LABS: BASO % 1.2 % (0.0-1.0); EOS # 0.1 10*3/uL (0.0-0.4); EOS % 1.8 % (1.0-4.0); HEMATOCRIT 25.8 % (37.0-47.0); LYMPH # 0.9 10*3/uL (1.3-4.4); LYMPH % 26.4 % (27.0-41.0); MEAN CELL VOLUME 82.4 fl (81.0-99.0); MEAN CORPUSCULAR HGB 26.5 pg (27.0-31.0); MEAN CORPUSCULAR HGB CONC 32.2 g/dl (33.0-37.0); MEAN PLATELET VOLUME 9.9 fl (9.6-12.3); MONO # 0.2 10*3/uL (0.1-1.0); MONO % 4.9 % (3.0-9.0); NEUT # 2.2 10*3/uL (2.3-7.9); NEUT % 65.4 % (47.0-73.0); PLATELET COUNT AUTOMATED 132 10*3/uL (130-400); RED BLOOD COUNT 3.13 10*6/uL (4.10-5.10); RED CELL DISTRI WIDTH 24.3 % (0-14.5); WHITE BLOOD COUNT 3.3 10*3/uL (4.8-10.8)
[2024-04-12] MEDS ORDERED: Lidocaine/Prilocaine 5 GM TUBE T ONE (06:30)
[2024-04-12] MEDS ORDERED: HEEL PROTECTOR DEVICE ONE (06:50)
[2024-04-12] MEDS ORDERED: CHAIR CUSHION DEVICE ONE (06:50)
[2024-04-12 06:59] LABS: POTASSIUM 4.4 mmol/L (3.4-5.1)
[2024-04-12 08:00] VITALS: BP 137/53
[2024-04-12] MEDS ORDERED: Acetaminophen/Hydrocodone 5 MG/325 MG TABLET PO ONE (09:00)
[2024-04-12 12:00] VITALS: BP 152/47
[2024-04-12] MEDS ORDERED: VIBRAMYCIN100 MG PO (12:06)
[2024-04-12] MEDS ORDERED: FEOSOL325 MG PO (12:07)
[2024-04-12] MEDS ORDERED: HYDROCODONE-AC1 EAC1 PO (12:48)
== END 2024-04-12 14:20 | disposition home health service (06) | DRG 871 ==
LOC: ED 14:41 → 4E 16:28 → EDHOLD 16:28 → 4E 20:13
PROVIDERS: Emergency Medicine; Internal Medicine; Registered Nurse; ADMIT Student in an Organized Health Care Education/Training Program; ATTEND Student in an Organized Health Care Education/Training Program
PROC: 30233N1 Transfusion of Nonautologous Red Blood Cells into Peripheral Vein, Percutaneous Approach (ICD-10-PCS; 2024-04-10)
PROC: 0HBNXZZ Excision of Left Foot Skin, External Approach (ICD-10-PCS; principal; 2024-04-12)
PROC: 0HBKXZZ Excision of Right Lower Leg Skin, External Approach (ICD-10-PCS; 2024-04-12)
PROC: 0HBLXZZ Excision of Left Lower Leg Skin, External Approach (ICD-10-PCS; 2024-04-12)
PROC: 0HBMXZZ Excision of Right Foot Skin, External Approach (ICD-10-PCS; 2024-04-12)
DX: A41.9 Sepsis, unspecified organism (principal); N17.0 Acute kidney failure with tubular necrosis; L03.115 Cellulitis of right lower limb; D61.818 Other pancytopenia; E87.1 Hypo-osmolality and hyponatremia; L97.828 Non-pressure chronic ulcer of other part of left lower leg with other specified severity; L97.518 Non-pressure chronic ulcer of other part of right foot with other specified severity; L97.528 Non-pressure chronic ulcer of other part of left foot with other specified severity; L03.116 Cellulitis of left lower limb; R54 Age-related physical debility; E11.49 Type 2 diabetes mellitus with other diabetic neurological complication; E11.65 Type 2 diabetes mellitus with hyperglycemia; F17.210 Nicotine dependence, cigarettes, uncomplicated; J44.9 Chronic obstructive pulmonary disease, unspecified; D50.9 Iron deficiency anemia, unspecified; E78.5 Hyperlipidemia, unspecified; E11.22 Type 2 diabetes mellitus with diabetic chronic kidney disease; I12.9 Hypertensive chronic kidney disease with stage 1 through stage 4 chronic kidney disease, or unspecified chronic kidney disease; N18.32 Chronic kidney disease, stage 3b; E11.621 Type 2 diabetes mellitus with foot ulcer; L89.610 Pressure ulcer of right heel, unstageable; Z90.710 Acquired absence of both cervix and uterus; Z82.49 Family history of ischemic heart disease and other diseases of the circulatory system; Z80.1 Family history of malignant neoplasm of trachea, bronchus and lung; Z88.2 Allergy status to sulfonamides; Z79.899 Other long term (current) drug therapy; Z79.82 Long term (current) use of aspirin; Z79.84 Long term (current) use of oral hypoglycemic drugs

== ENCOUNTER 2024-04-17 12:48 | Inpatient (IN) | payer OTHER, MEDICAID ==
[~2024-04-17] VITALS: Ht 152.4 cm; Wt 43.1 kg
[~2024-04-17 12:48] MED LIST changes: +COREG3.125 MG PO; +FEOSOL325 MG PO; +HYDREA500 M1 PO; +HYDROCODONE-AC1 EAC1 PO; +LASIX20 MG PO; +POTASSIUM CHLO20 ME3 PO; +VIBRAMYCIN100 MG PO; +ZESTRIL40 MG PO
[2024-04-17 12:50] VITALS: BP 155/46
[2024-04-17] MEDS ORDERED: SODIUM CHLORIDE 0.9% 1,000 ML IV ONE (13:25)
[2024-04-17] MEDS ORDERED: Ondansetron Hydrochloride 4 MG/2 ML VIAL IV ONE (13:25)
[2024-04-17 14:02] LABS: BASO % 0.6 % (0.0-1.0); EOS % 1.2 % (1.0-4.0); HEMATOCRIT 25.9 % (37.0-47.0); LYMPH # 0.8 10*3/uL (1.3-4.4); MEAN CELL VOLUME 82.5 fl (81.0-99.0); MEAN CORPUSCULAR HGB 26.4 pg (27.0-31.0); MEAN PLATELET VOLUME 9.7 fl (9.6-12.3); MONO # 0.1 10*3/uL (0.1-1.0); MONO % 2.6 % (3.0-9.0); NEUT # 2.5 10*3/uL (2.3-7.9); NEUT % 71.7 % (47.0-73.0); PLATELET COUNT AUTOMATED 162 10*3/uL (130-400); RED BLOOD COUNT 3.14 10*6/uL (4.10-5.10); RED CELL DISTRI WIDTH 25.4 % (0-14.5); WHITE BLOOD COUNT 3.4 10*3/uL (4.8-10.8)
[2024-04-17 14:22] LABS: POTASSIUM 4.8 mmol/L (3.4-5.1); TOTAL PROTEIN 6.9 gm/dL (6.0-8.0)
[2024-04-17 14:25] LABS: ACT PARTIAL THROMBO TIME 31.6 SECONDS (20.0-32.1)
[2024-04-17] MEDS ORDERED: Acetaminophen/Oxycodone 5 MG/325 MG TABLET PO ONE (14:40)
[2024-04-17 14:49] LABS: BILIRUBIN Negative (Negative); BLOOD 2+ (Negative); CLARITY Clear (Clear); COLOR Yellow (Yellow); GLUCOSE Negative (Negative); KETONE Negative (Negative); LEUKO ESTERASE Negative (Negative); NITRITE Negative (Negative); UROBILINOGEN 0.2 E.U./dl (0.0-1.0)
[2024-04-17 14:59] LABS: BACTERIA TRACE; RBC 31-40 rbc/hpf (0-2)
[2024-04-17] MEDS ORDERED: Metoclopramide Hydrochloride 10 MG/2 ML AMP IV ONE (16:50)
[2024-04-17] MEDS ORDERED: BISACODYL 10 MG SUPP R PRN (19:00)
[2024-04-17] MEDS ORDERED: Magnesium Hydroxide 30 ML UDC PO PRN (19:00)
[2024-04-17] MEDS ORDERED: BISACODYL 5 MG TAB PO PRN (19:00)
[2024-04-17] MEDS ORDERED: ACETAMINOPHEN 325 MG TAB PO PRN (19:00)
[2024-04-17] MEDS ORDERED: Ondansetron Hydrochloride 4 MG/2 ML VIAL IV PRN (19:00)
[2024-04-17] MEDS ORDERED: MORPHINE Sulfate 2 MG/ML SYR IV PRN (19:00)
[2024-04-17 19:05] VITALS: BP 145/48
[2024-04-17] MEDS ORDERED: Pantoprazole Sodium 40 MG TAB PO PRN (19:05)
[2024-04-17] MEDS ORDERED: Lactated Ringer's Solution 1,000 ML IV SCH (19:05)
[2024-04-17] MEDS ORDERED: DEXTROSE 10 % IN WATER 250 ML IV PRN (19:05)
[2024-04-17 19:54] VITALS: BP 143/79
[2024-04-17] MEDS ORDERED: INSULIN LISPRO 1 UNIT/0.01 ML SQ SCH (22:00)
[2024-04-17 23:34] LABS: POTASSIUM 4.5 mmol/L (3.4-5.1)
[2024-04-18 00:04] VITALS: BP 152/68
[2024-04-18] MEDS ORDERED: TEMAZEPAM 15 MG CAP PO ONE (02:15)
[2024-04-18 06:49] LABS: BASO % 0.7 % (0.0-1.0); EOS % 1.1 % (1.0-4.0); HEMATOCRIT 24.1 % (37.0-47.0); LYMPH # 1.1 10*3/uL (1.3-4.4); LYMPH % 41.2 % (27.0-41.0); MEAN CORPUSCULAR HGB 27.2 pg (27.0-31.0); MEAN CORPUSCULAR HGB CONC 33.2 g/dl (33.0-37.0); MEAN PLATELET VOLUME 10.4 fl (9.6-12.3); MONO # 0.1 10*3/uL (0.1-1.0); MONO % 3.7 % (3.0-9.0); NEUT # 1.4 10*3/uL (2.3-7.9); NEUT % 52.9 % (47.0-73.0); PLATELET COUNT AUTOMATED 148 10*3/uL (130-400); RED BLOOD COUNT 2.94 10*6/uL (4.10-5.10); RED CELL DISTRI WIDTH 25.1 % (0-14.5); WHITE BLOOD COUNT 2.7 10*3/uL (4.8-10.8)
[2024-04-18 07:16] LABS: POTASSIUM 4.3 mmol/L (3.4-5.1)
[2024-04-18 08:00] VITALS: BP 148/62
[2024-04-18] MEDS ORDERED: Enoxaparin Sodium 30 MG/0.3 ML SYR SC SCH (10:00)
[2024-04-18] MEDS ORDERED: GABAPENTIN 100 MG CAP PO SCH (11:20)
[2024-04-18 15:56] VITALS: BP 163/60
[2024-04-18] MEDS ORDERED: Metoclopramide Hydrochloride 10 MG/2 ML AMP IV SCH (16:00)
[2024-04-18 16:10] VITALS: BP 186/70
[2024-04-18] MEDS ORDERED: BUDESONIDE 0.5 MG AMP NEB SCH (17:35)
[2024-04-18] MEDS ORDERED: FUROSEMIDE 20 MG TAB PO SCH (17:35)
[2024-04-18] MEDS ORDERED: amLODIPine besylate 10 MG TAB PO SCH (17:35)
[2024-04-18] MEDS ORDERED: Albuterol Sulf/Ipratropium 3 ML VIAL NEB SCH (17:35)
[2024-04-18] MEDS ORDERED: HYDROXYUREA 500 MG CAP PO SCH (18:00)
[2024-04-18 20:00] VITALS: BP 165/57
[2024-04-18] MEDS ORDERED: CARVEDILOL 3.125 MG TAB PO SCH (22:00)
[2024-04-19] VITALS: BP 123/46
[2024-04-19 04:56] LABS: POTASSIUM 4.6 mmol/L (3.4-5.1)
[2024-04-19 06:01] LABS: BASO % 0.4 % (0.0-1.0); EOS % 0.8 % (1.0-4.0); HEMATOCRIT 22.3 % (37.0-47.0); LYMPH % 36.4 % (27.0-41.0); MEAN CELL VOLUME 80.5 fl (81.0-99.0); MEAN CORPUSCULAR HGB 27.8 pg (27.0-31.0); MEAN CORPUSCULAR HGB CONC 34.5 g/dl (33.0-37.0); MEAN PLATELET VOLUME 10.2 fl (9.6-12.3); MONO # 0.1 10*3/uL (0.1-1.0); NEUT # 1.5 10*3/uL (2.3-7.9); NEUT % 56.3 % (47.0-73.0); PLATELET COUNT AUTOMATED 143 10*3/uL (130-400); RED BLOOD COUNT 2.77 10*6/uL (4.10-5.10); RED CELL DISTRI WIDTH 25.3 % (0-14.5); WHITE BLOOD COUNT 2.6 10*3/uL (4.8-10.8)
[2024-04-19 08:00] VITALS: BP 112/78
[2024-04-19] MEDS ORDERED: Acetaminophen/Hydrocodone ES 7.5/325 tablet PO PRN (09:20)
[2024-04-19 12:00] VITALS: BP 124/78
[2024-04-19 16:00] VITALS: BP 128/47
[2024-04-19 20:00] VITALS: BP 129/51
[2024-04-20] VITALS: BP 114/45
[2024-04-20 06:30] LABS: BASO % 0.4 % (0.0-1.0); EOS % 1.2 % (1.0-4.0); HEMATOCRIT 22.8 % (37.0-47.0); LYMPH # 1.1 10*3/uL (1.3-4.4); LYMPH % 41.9 % (27.0-41.0); MEAN CELL VOLUME 81.4 fl (81.0-99.0); MEAN CORPUSCULAR HGB 27.1 pg (27.0-31.0); MEAN CORPUSCULAR HGB CONC 33.3 g/dl (33.0-37.0); MEAN PLATELET VOLUME 10.3 fl (9.6-12.3); MONO # 0.1 10*3/uL (0.1-1.0); MONO % 4.7 % (3.0-9.0); NEUT # 1.3 10*3/uL (2.3-7.9); PLATELET COUNT AUTOMATED 154 10*3/uL (130-400); RED CELL DISTRI WIDTH 25.4 % (0-14.5); WHITE BLOOD COUNT 2.6 10*3/uL (4.8-10.8)
[2024-04-20 08:00] VITALS: BP 120/41
[2024-04-20] MEDS ORDERED: FERROUS SULFATE 325 MG TAB PO SCH (10:00)
[2024-04-20] MEDS ORDERED: REGLAN5 MG PO (14:27)
== END 2024-04-20 17:42 | disposition home health service (06) | DRG 683 ==
LOC: ED 12:48 → ICCU 18:31 → EDHOLD 18:31 → ICCU 04-18 15:26
PROVIDERS: Internal Medicine; Student in an Organized Health Care Education/Training Program; ADMIT Student in an Organized Health Care Education/Training Program; ATTEND Student in an Organized Health Care Education/Training Program
PROC: 0HBNXZZ Excision of Left Foot Skin, External Approach (ICD-10-PCS; principal; 2024-04-19)
PROC: 0HBKXZZ Excision of Right Lower Leg Skin, External Approach (ICD-10-PCS; 2024-04-19)
PROC: 0HBLXZZ Excision of Left Lower Leg Skin, External Approach (ICD-10-PCS; 2024-04-19)
PROC: 0HBMXZZ Excision of Right Foot Skin, External Approach (ICD-10-PCS; 2024-04-19)
DX: N17.0 Acute kidney failure with tubular necrosis (principal); E87.1 Hypo-osmolality and hyponatremia; J90 Pleural effusion, not elsewhere classified; E11.65 Type 2 diabetes mellitus with hyperglycemia; D47.3 Essential (hemorrhagic) thrombocythemia; E83.42 Hypomagnesemia; J44.9 Chronic obstructive pulmonary disease, unspecified; E11.22 Type 2 diabetes mellitus with diabetic chronic kidney disease; F17.210 Nicotine dependence, cigarettes, uncomplicated; E78.5 Hyperlipidemia, unspecified; M81.0 Age-related osteoporosis without current pathological fracture; D72.819 Decreased white blood cell count, unspecified; D64.9 Anemia, unspecified; E87.8 Other disorders of electrolyte and fluid balance, not elsewhere classified; N18.32 Chronic kidney disease, stage 3b; S91.302A Unspecified open wound, left foot, initial encounter; S81.802A Unspecified open wound, left lower leg, initial encounter; S81.801A Unspecified open wound, right lower leg, initial encounter; S91.002A Unspecified open wound, left ankle, initial encounter; S91.301A Unspecified open wound, right foot, initial encounter; I12.9 Hypertensive chronic kidney disease with stage 1 through stage 4 chronic kidney disease, or unspecified chronic kidney disease; X58.XXXA Exposure to other specified factors, initial encounter; Z88.2 Allergy status to sulfonamides; Z88.8 Allergy status to other drugs, medicaments and biological substances; Z90.710 Acquired absence of both cervix and uterus; Z81.1 Family history of alcohol abuse and dependence; Z82.49 Family history of ischemic heart disease and other diseases of the circulatory system; Z82.3 Family history of stroke; Z80.1 Family history of malignant neoplasm of trachea, bronchus and lung; Z83.79 Family history of other diseases of the digestive system; Y93.89 Activity, other specified; Y92.89 Other specified places as the place of occurrence of the external cause; Y99.8 Other external cause status

== ENCOUNTER 2024-05-02 09:54 | Inpatient (IN) | payer OTHER, MEDICAID ==
[~2024-05-02] VITALS: Ht 152.4 cm; Wt 49.0 kg
[2024-05-02] VITALS (13 sets, daily range): BP systolic 105–216; BP diastolic 34–124
[~2024-05-02 09:54] MED LIST changes: +REGLAN5 MG PO
[2024-05-02] MEDS ORDERED: MORPHINE Sulfate 2 MG/ML SYR IV ONE (10:20)
[2024-05-02] MEDS ORDERED: Ondansetron Hydrochloride 4 MG/2 ML VIAL IV ONE (10:20)
[2024-05-02 10:38] LABS: HEMATOCRIT 21.1 % (37.0-47.0); MEAN CELL VOLUME 83.4 fl (81.0-99.0); MEAN CORPUSCULAR HGB 27.3 pg (27.0-31.0); MEAN CORPUSCULAR HGB CONC 32.7 g/dl (33.0-37.0); MEAN PLATELET VOLUME 10.2 fl (9.6-12.3); PLATELET COUNT AUTOMATED 96 10*3/uL (130-400); RED BLOOD COUNT 2.53 10*6/uL (4.10-5.10); RED CELL DISTRI WIDTH 27.5 % (0-14.5); WHITE BLOOD COUNT 2.5 10*3/uL (4.8-10.8)
[2024-05-02 10:40] LABS: MANUAL DIFF REFLEX YES
[2024-05-02 10:55] LABS: POTASSIUM 6.4 mmol/L (3.4-5.1)
[2024-05-02] MEDS ORDERED: DEXTROSE 50% 25 GM/50 ML SYR IV ONE (11:00)
[2024-05-02] MEDS ORDERED: INSULIN REGULAR, HUMAN 1 UNIT/0.01 ML IV ONE (11:00)
[2024-05-02] MEDS ORDERED: Albuterol Sulf/Ipratropium 3 ML VIAL NEB ONE (11:00)
[2024-05-02 11:03] LABS: ATYPICAL LYMPHS 1 % (0-0); BASOPHILS 1 % (0-1); OVALOCYTES FEW; PLATELET SUFFICIENCY LOW (NORMAL); POLYCHROMASIA SLIGHT; TOTAL CELLS COUNTED 100 #CELLS
[2024-05-02] MEDS ORDERED: CALCIUM GLUC IN NACL, ISO-OSM 100 ML IV ONE (11:15)
[2024-05-02] MEDS ORDERED: SODIUM CHLORIDE 0.9% 1,000 ML IV ONE (11:15)
[2024-05-02] MEDS ORDERED: BISACODYL 10 MG SUPP R PRN (12:10)
[2024-05-02] MEDS ORDERED: BISACODYL 5 MG TAB PO PRN (12:10)
[2024-05-02] MEDS ORDERED: ACETAMINOPHEN 650 MG SUPP R PRN (12:10)
[2024-05-02] MEDS ORDERED: Ondansetron Hydrochloride 4 MG/2 ML VIAL IV PRN (12:10)
[2024-05-02] MEDS ORDERED: ACETAMINOPHEN 325 MG TAB PO PRN (12:10)
[2024-05-02] MEDS ORDERED: Magnesium Hydroxide 30 ML UDC PO PRN (12:10)
[2024-05-02] MEDS ORDERED: DEXTROSE 10 % IN WATER 250 ML DEHP.FR.BG IV ONE (12:35)
[2024-05-02] MEDS ORDERED: SODIUM POLYSTYRENE SULFONATE 15 GM/60 ML BOT PO ONE (12:45)
[2024-05-02] MEDS ORDERED: HYDROmorphONE Hydrochloride 0.5 MG/0.5 ML SYRINGE IV PRN (13:20)
[2024-05-02] MEDS ORDERED: Ketorolac Tromethamine 15 MG/ML VIAL IV ONE (13:35)
[2024-05-02] MEDS ORDERED: ACETAMINOPHEN 325 MG TAB PO ONE (13:40)
[2024-05-02] MEDS ORDERED: BARIUM SULFATE 60% 355 ML BOT DIAG SCH (14:00)
[2024-05-02] MEDS ORDERED: BARIUM SULFATE 98% 340 GM BOT DIAG SCH (14:00)
[2024-05-02] MEDS ORDERED: SODIUM CHLORIDE 0.9% 500 ML IV ONE (15:59)
[2024-05-02 16:30] LABS: POTASSIUM 5.9 mmol/L (3.4-5.1)
[2024-05-02] MEDS ORDERED: DEXTROSE 10 % IN WATER 250 ML IV PRN (18:35)
[2024-05-02 20:25] LABS: HEMATOCRIT 27.2 % (37.0-47.0); MANUAL DIFF REFLEX YES; MEAN CELL VOLUME 84.5 fl (81.0-99.0); MEAN CORPUSCULAR HGB 28.3 pg (27.0-31.0); MEAN CORPUSCULAR HGB CONC 33.5 g/dl (33.0-37.0); MEAN PLATELET VOLUME 9.4 fl (9.6-12.3); PLATELET COUNT AUTOMATED 78 10*3/uL (130-400); RED BLOOD COUNT 3.22 10*6/uL (4.10-5.10); WHITE BLOOD COUNT 2.3 10*3/uL (4.8-10.8)
[2024-05-02 20:46] LABS: OVALOCYTES FEW; PLATELET SUFFICIENCY LOW (NORMAL); TOTAL CELLS COUNTED 100 #CELLS
[2024-05-02] MEDS ORDERED: LEPTOSPERMUM HONEY 0.5 OZ TUBE T ONE (21:34)
[2024-05-02] MEDS ORDERED: LEPTOSPERMUM HONEY 4 X 5 INCH WOUND DRESSING T ONE (21:35)
[2024-05-02] MEDS ORDERED: INSULIN LISPRO 1 UNIT/0.01 ML SQ SCH (22:00)
[2024-05-02] MEDS ORDERED: HEPARIN SODIUM 5,000 UNIT/ML VIAL SC SCH (22:00)
[2024-05-02] MEDS ORDERED: TIOTROPIUM BROMIDE 18 MCG CAPSULES INHALER INH SCH (22:15)
[2024-05-02] MEDS ORDERED: Acetaminophen/Hydrocodone Bi 3 TAB PACK PO PRN (22:20)
[2024-05-02] MEDS ORDERED: BUDESONIDE 0.5 MG AMP NEB SCH (22:45)
[2024-05-02] MEDS ORDERED: Albuterol Sulf/Ipratropium 3 ML VIAL NEB SCH (22:45)
[2024-05-03] VITALS: BP 159/50
[2024-05-03 06:56] LABS: HEMATOCRIT 26.7 % (37.0-47.0); MEAN PLATELET VOLUME 9.1 fl (9.6-12.3); PLATELET COUNT AUTOMATED 68 10*3/uL (130-400); RED BLOOD COUNT 3.14 10*6/uL (4.10-5.10); RED CELL DISTRI WIDTH 25.2 % (0-14.5)
[2024-05-03 07:14] LABS: MANUAL DIFF REFLEX YES; WHITE BLOOD COUNT 1.7 10*3/uL (4.8-10.8)
[2024-05-03 07:35] LABS: MICROCYTOSIS MODERATE; PLATELET SUFFICIENCY LOW (NORMAL); TOTAL CELLS COUNTED 100 #CELLS
[2024-05-03 08:00] VITALS: BP 149/44
[2024-05-03 08:03] LABS: ALKALINE PHOSPHATASE 88 U/L (46-116); BUN 85 mg/dl (9-23); CHLORIDE 106 mmol/L (98-107); TOTAL PROTEIN 6.2 gm/dL (6.0-8.0)
[2024-05-03 08:27] LABS: POTASSIUM 6.5 mmol/L (3.4-5.1); SGPT/ALT < 7 U/L (5-49)
[2024-05-03] MEDS ORDERED: INSULIN REGULAR, HUMAN 1 UNIT/0.01 ML IV ONE (08:30)
[2024-05-03] MEDS ORDERED: SODIUM POLYSTYRENE SULFONATE 15 GM/60 ML BOT PO ONE (08:30)
[2024-05-03] MEDS ORDERED: DEXTROSE 10 % IN WATER 250 ML DEHP.FR.BG IV ONE (08:30)
[2024-05-03] MEDS ORDERED: HYDROXYUREA 500 MG CAP PO SCH (10:00)
[2024-05-03] MEDS ORDERED: CARVEDILOL 3.125 MG TAB PO SCH (10:00)
[2024-05-03] MEDS ORDERED: Budesonide/Formoterol Fumarate 160/4.5 inhaler INH SCH (10:00)
[2024-05-03] MEDS ORDERED: ASPIRIN, CHEWABLE 81 MG TAB PO SCH (10:00)
[2024-05-03] MEDS ORDERED: amLODIPine besylate 10 MG TAB PO SCH (10:00)
[2024-05-03] MEDS ORDERED: CALCIUM GLUC IN NACL, ISO-OSM 100 ML IV ONE (10:50)
[2024-05-03] MEDS ORDERED: SODIUM CHLORIDE 0.9% 1,000 ML IV ONE (10:55)
[2024-05-03 12:00] VITALS: BP 100/39
[2024-05-03 12:02] VITALS: BP 120/40
[2024-05-03 14:40] LABS: POTASSIUM 5.7 mmol/L (3.4-5.1)
[2024-05-03 16:00] VITALS: BP 133/43
[2024-05-03] MEDS ORDERED: Metoclopramide Hydrochloride 5 MG TAB PO SCH (16:00)
[2024-05-03 20:00] VITALS: BP 132/35
[2024-05-04] VITALS: BP 127/41
[2024-05-04 06:34] LABS: HEMATOCRIT 23.9 % (37.0-47.0); MEAN CELL VOLUME 87.9 fl (81.0-99.0); MEAN CORPUSCULAR HGB 28.7 pg (27.0-31.0); MEAN CORPUSCULAR HGB CONC 32.6 g/dl (33.0-37.0); PLATELET COUNT AUTOMATED 53 10*3/uL (130-400); RED BLOOD COUNT 2.72 10*6/uL (4.10-5.10); RED CELL DISTRI WIDTH 25.4 % (0-14.5)
[2024-05-04 06:35] LABS: MANUAL DIFF REFLEX YES
[2024-05-04 06:46] LABS: POTASSIUM 5.8 mmol/L (3.4-5.1)
[2024-05-04 07:01] LABS: BURR CELLS FEW; OVALOCYTES FEW; POLYCHROMASIA SLIGHT; TOTAL CELLS COUNTED 100 #CELLS
[2024-05-04 07:02] LABS: PLATELET SUFFICIENCY LOW (NORMAL)
[2024-05-04] MEDS ORDERED: SODIUM POLYSTYRENE SULFONATE 15 GM/60 ML BOT PO ONE (07:05)
[2024-05-04 08:00] VITALS: BP 129/49
[2024-05-04] MEDS ORDERED: SODIUM CHLORIDE 0.9% 1,000 ML IV SCH (09:45)
[2024-05-04 12:00] VITALS: BP 138/48
[2024-05-04 18:30] VITALS: BP 108/50
[2024-05-05] VITALS: BP 123/45
[2024-05-05 06:46] LABS: RETICULOCYTE % 0.38 % (0.50-2.50)
[2024-05-05 06:47] LABS: HEMATOCRIT 23.2 % (37.0-47.0); MEAN CELL VOLUME 87.9 fl (81.0-99.0); MEAN CORPUSCULAR HGB 27.7 pg (27.0-31.0); MEAN CORPUSCULAR HGB CONC 31.5 g/dl (33.0-37.0); MEAN PLATELET VOLUME 9.6 fl (9.6-12.3); PLATELET COUNT AUTOMATED 46 10*3/uL (130-400); RED BLOOD COUNT 2.64 10*6/uL (4.10-5.10); RED CELL DISTRI WIDTH 25.9 % (0-14.5)
[2024-05-05 06:48] LABS: MANUAL DIFF REFLEX YES
[2024-05-05 06:49] LABS: WHITE BLOOD COUNT 1.4 10*3/uL (4.8-10.8)
[2024-05-05 07:13] LABS: BURR CELLS FEW; OVALOCYTES FEW; PLATELET SUFFICIENCY LOW (NORMAL); POLYCHROMASIA SLIGHT; POTASSIUM 5.1 mmol/L (3.4-5.1); SCHISTOCYTES FEW; TOTAL CELLS COUNTED 100 #CELLS
[2024-05-05 08:00] VITALS: BP 133/98
[2024-05-05] MEDS ORDERED: TBO-FILGRASTIM 300 MCG/0.5 ML SYRINGE SQ SCH (10:00)
[2024-05-05] MEDS ORDERED: FAMOTIDINE 10 MG TAB PO SCH (10:00)
[2024-05-05 12:00] VITALS: BP 121/43
[2024-05-05] MEDS ORDERED: FILGRASTIM 300 MCG/ML VIAL SC SCH (13:08)
[2024-05-05 16:00] VITALS: BP 120/40
[2024-05-05 20:00] VITALS: BP 90/49
[2024-05-06] VITALS: BP 114/52
[2024-05-06 03:06] LABS: TOTAL PROTEIN, SERUM 5.4 g/dL (6.0-8.5)
[2024-05-06 06:12] LABS: HEMATOCRIT 23.3 % (37.0-47.0); MEAN CELL VOLUME 86.3 fl (81.0-99.0); MEAN CORPUSCULAR HGB 28.5 pg (27.0-31.0); MEAN PLATELET VOLUME 9.2 fl (9.6-12.3); PLATELET COUNT AUTOMATED 35 10*3/uL (130-400); RED CELL DISTRI WIDTH 26.1 % (0-14.5); WHITE BLOOD COUNT 2.2 10*3/uL (4.8-10.8)
[2024-05-06 06:17] LABS: MANUAL DIFF REFLEX YES
[2024-05-06 06:53] LABS: POTASSIUM 4.8 mmol/L (3.4-5.1)
[2024-05-06 07:31] LABS: ATYPICAL LYMPHS 2 % (0-0); BASOPHILS 2 % (0-1); BURR CELLS FEW; OVALOCYTES FEW; PLATELET SUFFICIENCY LOW (NORMAL); TOTAL CELLS COUNTED 100 #CELLS
[2024-05-06 07:32] LABS: DOHLE BODIES FEW; SCHISTOCYTES FEW
[2024-05-06 07:33] LABS: MICROCYTOSIS MODERATE
[2024-05-06 08:00] VITALS: BP 111/65
[2024-05-06 12:00] VITALS: BP 132/47
[2024-05-06 14:09] LABS: A/G RATIO 1.1 (0.7-1.7); ALBUMIN 2.8 g/dL (2.9-4.4); ALPHA-1-GLOBULIN 0.3 g/dL (0.0-0.4); ALPHA-2-GLOBULIN 0.8 g/dL (0.4-1.0); BETA GLOBULIN 0.6 g/dL (0.7-1.3); GLOBULIN, TOTAL 2.6 g/dL (2.2-3.9)
[2024-05-06 16:00] VITALS: BP 124/63
[2024-05-06 20:00] VITALS: BP 156/42
[2024-05-07] VITALS (14 sets, daily range): BP systolic 110–143; BP diastolic 40–70
[2024-05-07 07:06] LABS: MEAN CORPUSCULAR HGB 27.8 pg (27.0-31.0); MEAN CORPUSCULAR HGB CONC 31.2 g/dl (33.0-37.0); RED BLOOD COUNT 2.27 10*6/uL (4.10-5.10); RED CELL DISTRI WIDTH 25.9 % (0-14.5); WHITE BLOOD COUNT 3.3 10*3/uL (4.8-10.8)
[2024-05-07 07:52] LABS: HEMATOCRIT 20.2 % (37.0-47.0)
[2024-05-07 07:53] LABS: MANUAL DIFF REFLEX YES; PLATELET COUNT AUTOMATED 18 10*3/uL (130-400)
[2024-05-07 07:58] LABS: ATYPICAL LYMPHS 2 % (0-0); TOTAL CELLS COUNTED 100 #CELLS
[2024-05-07 07:59] LABS: PLATELET SUFFICIENCY LOW (NORMAL)
[2024-05-07 08:01] LABS: DOHLE BODIES FEW
[2024-05-07 08:04] LABS: OVALOCYTES FEW
[2024-05-07 08:05] LABS: BURR CELLS FEW; VACUOLATION OF NEUTROPHILS SLIGHT
[2024-05-07] MEDS ORDERED: SODIUM CHLORIDE 0.9% 250 ML IV SCH (09:10)
[2024-05-07] MEDS ORDERED: TBO-FILGRASTIM 300 MCG/0.5 ML SYRINGE SQ SCH (10:57)
[2024-05-07] MEDS ORDERED: FOAM BANDAGE 5X5 T ONE (14:48)
[2024-05-07] MEDS ORDERED: HEEL PROTECTOR DEVICE ONE (16:23)
[2024-05-07 17:45] LABS: HEMATOCRIT 27.5 % (37.0-47.0); MEAN CELL VOLUME 87.3 fl (81.0-99.0); MEAN CORPUSCULAR HGB 28.9 pg (27.0-31.0); MEAN CORPUSCULAR HGB CONC 33.1 g/dl (33.0-37.0); RED BLOOD COUNT 3.15 10*6/uL (4.10-5.10); RED CELL DISTRI WIDTH 23.3 % (0-14.5); WHITE BLOOD COUNT 6.7 10*3/uL (4.8-10.8)
[2024-05-07 17:46] LABS: PLATELET COUNT AUTOMATED 39 10*3/uL (130-400)
[2024-05-07 17:47] LABS: MANUAL DIFF REFLEX YES
[2024-05-07 18:27] LABS: ACANTHOCYTES FEW; OVALOCYTES MODERATE; PLATELET SUFFICIENCY LOW (NORMAL); TOTAL CELLS COUNTED 100 #CELLS
[2024-05-08] VITALS: BP 143/64
[2024-05-08] MEDS ORDERED: GABAPENTIN 100 MG CAP PO SCH (05:20)
[2024-05-08 06:44] LABS: HEMATOCRIT 24.9 % (37.0-47.0); MEAN CELL VOLUME 86.5 fl (81.0-99.0); MEAN CORPUSCULAR HGB 27.8 pg (27.0-31.0); MEAN CORPUSCULAR HGB CONC 32.1 g/dl (33.0-37.0); PLATELET COUNT AUTOMATED 31 10*3/uL (130-400); RED BLOOD COUNT 2.88 10*6/uL (4.10-5.10); RED CELL DISTRI WIDTH 22.5 % (0-14.5)
[2024-05-08 07:10] LABS: MANUAL DIFF REFLEX YES
[2024-05-08 07:14] LABS: ATYPICAL LYMPHS 1 % (0-0); TOTAL CELLS COUNTED 100 #CELLS
[2024-05-08 07:16] LABS: DOHLE BODIES FEW; PLATELET SUFFICIENCY LOW (NORMAL); VACUOLATION OF NEUTROPHILS SLIGHT
[2024-05-08 07:17] LABS: BURR CELLS FEW; OVALOCYTES FEW
[2024-05-08 07:30] LABS: POTASSIUM 3.8 mmol/L (3.4-5.1)
[2024-05-08 08:00] VITALS: BP 140/52
[2024-05-08 12:00] VITALS: BP 134/66
[2024-05-08 16:00] VITALS: BP 151/59
[2024-05-08 20:00] VITALS: BP 155/55
[2024-05-09] VITALS (19 sets, daily range): BP systolic 104–166; BP diastolic 45–80
[2024-05-09] MEDS ORDERED: FUROSEMIDE20 M1 PO (02:05)
[2024-05-09 05:55] LABS: POTASSIUM 3.6 mmol/L (3.4-5.1)
[2024-05-09 06:08] LABS: HEMATOCRIT 22.5 % (37.0-47.0); MEAN CELL VOLUME 86.5 fl (81.0-99.0); MEAN CORPUSCULAR HGB 28.1 pg (27.0-31.0); MEAN CORPUSCULAR HGB CONC 32.4 g/dl (33.0-37.0); RED CELL DISTRI WIDTH 22.6 % (0-14.5); WHITE BLOOD COUNT 5.1 10*3/uL (4.8-10.8)
[2024-05-09 06:58] LABS: MANUAL DIFF REFLEX YES
[2024-05-09 06:59] LABS: PLATELET SUFFICIENCY LOW (NORMAL); POLYCHROMASIA SLIGHT; TOTAL CELLS COUNTED 100 #CELLS
[2024-05-09 07:00] LABS: ACANTHOCYTES FEW; OVALOCYTES FEW
[2024-05-09 08:15] LABS: PLATELET COUNT AUTOMATED 20 10*3/uL (130-400)
[2024-05-09] MEDS ORDERED: HYDROmorphONE Hydrochloride 0.5 MG/0.5 ML SYRINGE IV SCH (18:00)
[2024-05-10] VITALS (9 sets, daily range): BP systolic 162–197; BP diastolic 60–76
[2024-05-10] MEDS ORDERED: LEPTOSPERMUM HONEY 4 X 5 INCH WOUND DRESSING T ONE ×2 (01:38→02:35)
[2024-05-10] MEDS ORDERED: FOAM BANDAGE 1 EACH BANDAGE T ONE (01:38)
[2024-05-10 06:04] LABS: HEMATOCRIT 27.6 % (37.0-47.0); MEAN CELL VOLUME 86.5 fl (81.0-99.0); MEAN CORPUSCULAR HGB 28.8 pg (27.0-31.0); MEAN CORPUSCULAR HGB CONC 33.3 g/dl (33.0-37.0); MEAN PLATELET VOLUME 10.6 fl (9.6-12.3); RED BLOOD COUNT 3.19 10*6/uL (4.10-5.10); RED CELL DISTRI WIDTH 20.4 % (0-14.5); WHITE BLOOD COUNT 4.2 10*3/uL (4.8-10.8)
[2024-05-10 06:10] LABS: PLATELET COUNT AUTOMATED 42 10*3/uL (130-400)
[2024-05-10 06:13] LABS: MANUAL DIFF REFLEX YES
[2024-05-10 06:23] LABS: BUN 20 mg/dl (9-23); CHLORIDE 110 mmol/L (98-107); POTASSIUM 3.7 mmol/L (3.4-5.1)
[2024-05-10 06:52] LABS: BASOPHILS 2 % (0-1); OVALOCYTES MODERATE; PLATELET SUFFICIENCY LOW (NORMAL); TOTAL CELLS COUNTED 100 #CELLS
[2024-05-10] MEDS ORDERED: SODIUM CHLORIDE 0.9% 1,000 ML IV ONE (13:07)
[2024-05-10] MEDS ORDERED: Lidocaine Hydrochloride 5 ML VIAL IV ONE (14:36)
[2024-05-10] MEDS ORDERED: PROPOFOL 200 MG/20 ML VIAL IV ONE (14:36)
[2024-05-10] MEDS ORDERED: hydrALAZINE hydrochloride 20 MG/ML VIAL IV ONE (19:55)
[2024-05-11] VITALS (8 sets, daily range): BP systolic 149–182; BP diastolic 55–70
[2024-05-11] MEDS ORDERED: MORPHINE Sulfate 2 MG/ML SYR IV ONE (01:30)
[2024-05-11 06:22] LABS: HEMATOCRIT 30.5 % (37.0-47.0); MEAN CELL VOLUME 85.9 fl (81.0-99.0); MEAN CORPUSCULAR HGB 28.2 pg (27.0-31.0); MEAN CORPUSCULAR HGB CONC 32.8 g/dl (33.0-37.0); PLATELET COUNT AUTOMATED 48 10*3/uL (130-400); RED BLOOD COUNT 3.55 10*6/uL (4.10-5.10); RED CELL DISTRI WIDTH 21.1 % (0-14.5)
[2024-05-11 06:39] LABS: POTASSIUM 3.7 mmol/L (3.4-5.1)
[2024-05-11 07:06] LABS: MANUAL DIFF REFLEX YES
[2024-05-11 07:10] LABS: BASOPHILS 1 % (0-1); OVALOCYTES FEW; PLATELET SUFFICIENCY LOW (NORMAL); TOTAL CELLS COUNTED 100 #CELLS
[2024-05-11] MEDS ORDERED: Pantoprazole Sodium 40 MG VIAL IV SCH ×2 (09:05→18:00)
[2024-05-11] MEDS ORDERED: SUCRALFATE 1 GM/10 ML UDC PO SCH (10:00)
[2024-05-11] MEDS ORDERED: MORPHINE Sulfate 2 MG/ML SYR IV PRN (10:10)
[2024-05-12] VITALS: BP 149/51
[2024-05-12 05:56] VITALS: BP 162/68
[2024-05-12 07:02] LABS: MEAN CELL VOLUME 87.1 fl (81.0-99.0); MEAN CORPUSCULAR HGB 28.2 pg (27.0-31.0); MEAN CORPUSCULAR HGB CONC 32.4 g/dl (33.0-37.0); MEAN PLATELET VOLUME 10.7 fl (9.6-12.3); PLATELET COUNT AUTOMATED 52 10*3/uL (130-400); RED BLOOD COUNT 3.33 10*6/uL (4.10-5.10); RED CELL DISTRI WIDTH 21.1 % (0-14.5); WHITE BLOOD COUNT 5.1 10*3/uL (4.8-10.8)
[2024-05-12 07:03] LABS: MANUAL DIFF REFLEX YES
[2024-05-12 07:43] LABS: PLATELET SUFFICIENCY LOW (NORMAL); POLYCHROMASIA SLIGHT; ROULEAUX MODERATE; TOTAL CELLS COUNTED 100 #CELLS
[2024-05-12] MEDS ORDERED: MORPHINE Sulfate 2 MG/ML SYR IV PRN (07:45)
[2024-05-12 08:00] VITALS: BP 120/62
[2024-05-12] MEDS ORDERED: SUCRALFATE 1 GM TAB PO SCH (10:00)
[2024-05-12] MEDS ORDERED: Lidocaine Hydrochloride 2 GM/50 ML BOT T ONE (11:30)
[2024-05-12 12:00] VITALS: BP 120/62
[2024-05-12 16:00] VITALS: BP 160/70
[2024-05-12 20:00] VITALS: BP 167/61
[2024-05-13] VITALS: BP 157/57
[2024-05-13 06:06] LABS: BASO % 0.4 % (0.0-1.0); EOS % 0.4 % (1.0-4.0); HEMATOCRIT 28.1 % (37.0-47.0); LYMPH # 1.1 10*3/uL (1.3-4.4); LYMPH % 20.2 % (27.0-41.0); MEAN CELL VOLUME 84.9 fl (81.0-99.0); MEAN CORPUSCULAR HGB CONC 34.2 g/dl (33.0-37.0); MEAN PLATELET VOLUME 12.2 fl (9.6-12.3); MONO # 0.5 10*3/uL (0.1-1.0); MONO % 9.2 % (3.0-9.0); NEUT # 3.6 10*3/uL (2.3-7.9); RED BLOOD COUNT 3.31 10*6/uL (4.10-5.10); RED CELL DISTRI WIDTH 20.9 % (0-14.5); WHITE BLOOD COUNT 5.2 10*3/uL (4.8-10.8)
[2024-05-13 06:36] LABS: PLATELET COUNT AUTOMATED 79 10*3/uL (130-400)
[2024-05-13 07:02] LABS: POTASSIUM 4.1 mmol/L (3.4-5.1)
[2024-05-13 08:00] VITALS: BP 159/57
[2024-05-13] MEDS ORDERED: PROTONIX40 MG PO (11:06)
[2024-05-13] MEDS ORDERED: GABAPENTIN100 M2 PO (11:06)
[2024-05-13] MEDS ORDERED: AMLODIPINE BESY10 MG PO (11:06)
[2024-05-13] MEDS ORDERED: Carafate1 GM PO (11:06)
[2024-05-13 11:48] VITALS: BP 154/65
== END 2024-05-13 14:44 | disposition home or self-care (01) | DRG 682 ==
LOC: ED 09:54 → 4E 11:52 → EDHOLD 11:52 → 4E 20:16
PROVIDERS: Internal Medicine; Physician Assistant; Student in an Organized Health Care Education/Training Program; ADMIT Internal Medicine; ATTEND Internal Medicine
PROC: 30233N1 Transfusion of Nonautologous Red Blood Cells into Peripheral Vein, Percutaneous Approach (ICD-10-PCS; principal; 2024-05-02)
PROC: 30233R1 Transfusion of Nonautologous Platelets into Peripheral Vein, Percutaneous Approach (ICD-10-PCS; 2024-05-07)
PROC: 0DB48ZX Excision of Esophagogastric Junction, Via Natural or Artificial Opening Endoscopic, Diagnostic (ICD-10-PCS; 2024-05-10)
PROC: 0HBNXZZ Excision of Left Foot Skin, External Approach (ICD-10-PCS; 2024-05-12)
PROC: 0HBMXZZ Excision of Right Foot Skin, External Approach (ICD-10-PCS; 2024-05-12)
DX: N17.0 Acute kidney failure with tubular necrosis (principal); E43 Unspecified severe protein-calorie malnutrition; E87.1 Hypo-osmolality and hyponatremia; C64.1 Malignant neoplasm of right kidney, except renal pelvis; D61.818 Other pancytopenia; K22.10 Ulcer of esophagus without bleeding; Z68.1 Body mass index [BMI] 19.9 or less, adult; E87.5 Hyperkalemia; N18.32 Chronic kidney disease, stage 3b; L89.156 Pressure-induced deep tissue damage of sacral region; Z66 Do not resuscitate; J44.9 Chronic obstructive pulmonary disease, unspecified; E11.22 Type 2 diabetes mellitus with diabetic chronic kidney disease; M81.0 Age-related osteoporosis without current pathological fracture; F17.210 Nicotine dependence, cigarettes, uncomplicated; E78.2 Mixed hyperlipidemia; E11.65 Type 2 diabetes mellitus with hyperglycemia; I70.1 Atherosclerosis of renal artery; D47.3 Essential (hemorrhagic) thrombocythemia; R13.10 Dysphagia, unspecified; N28.89 Other specified disorders of kidney and ureter; S81.801A Unspecified open wound, right lower leg, initial encounter; S81.802A Unspecified open wound, left lower leg, initial encounter; K22.2 Esophageal obstruction; K44.9 Diaphragmatic hernia without obstruction or gangrene; E11.51 Type 2 diabetes mellitus with diabetic peripheral angiopathy without gangrene; I12.9 Hypertensive chronic kidney disease with stage 1 through stage 4 chronic kidney disease, or unspecified chronic kidney disease; K26.9 Duodenal ulcer, unspecified as acute or chronic, without hemorrhage or perforation; Z88.2 Allergy status to sulfonamides; Z88.8 Allergy status to other drugs, medicaments and biological substances; Z90.710 Acquired absence of both cervix and uterus; Z82.49 Family history of ischemic heart disease and other diseases of the circulatory system; Z51.89 Encounter for other specified aftercare; Z80.1 Family history of malignant neoplasm of trachea, bronchus and lung; Z71.6 Tobacco abuse counseling; Z68.21 Body mass index [BMI] 21.0-21.9, adult

== ENCOUNTER 2024-05-15 23:31 | Inpatient (IN) | payer OTHER, MEDICAID ==
[~2024-05-15] VITALS: Ht 152.4 cm; Wt 48.0 kg
[~2024-05-15 23:31] MED LIST changes: +Carafate1 GM PO; +FUROSEMIDE20 M1 PO; +GABAPENTIN100 M2 PO; +PROTONIX40 MG PO
[2024-05-15 23:39] VITALS: BP 120/52
[2024-05-15 23:55] LABS: HEMATOCRIT 33.9 % (37.0-47.0); MEAN CELL VOLUME 86.3 fl (81.0-99.0); MEAN CORPUSCULAR HGB 28.5 pg (27.0-31.0); MEAN PLATELET VOLUME 9.9 fl (9.6-12.3); PLATELET COUNT AUTOMATED 307 10*3/uL (130-400); RED BLOOD COUNT 3.93 10*6/uL (4.10-5.10); RED CELL DISTRI WIDTH 21.2 % (0-14.5); WHITE BLOOD COUNT 14.3 10*3/uL (4.8-10.8)
[2024-05-16] VITALS (47 sets, daily range): BP systolic 54–124; BP diastolic 26–61
[2024-05-16 00:13] LABS: MANUAL DIFF REFLEX YES
[2024-05-16 00:15] LABS: PLATELET SUFFICIENCY NORMAL (NORMAL); TOTAL CELLS COUNTED 100 #CELLS
[2024-05-16 00:16] LABS: POTASSIUM 4.3 mmol/L (3.4-5.1)
[2024-05-16] MEDS ORDERED: SODIUM CHLORIDE 0.9% 1,000 ML IV ONE ×3 (00:25→03:40)
[2024-05-16 04:00] LABS: HEMATOCRIT 28.5 % (37.0-47.0); MANUAL DIFF REFLEX YES; MEAN CELL VOLUME 87.4 fl (81.0-99.0); MEAN CORPUSCULAR HGB 28.2 pg (27.0-31.0); MEAN CORPUSCULAR HGB CONC 32.3 g/dl (33.0-37.0); MEAN PLATELET VOLUME 10.6 fl (9.6-12.3); PLATELET COUNT AUTOMATED 248 10*3/uL (130-400); RED BLOOD COUNT 3.26 10*6/uL (4.10-5.10); RED CELL DISTRI WIDTH 21.1 % (0-14.5); WHITE BLOOD COUNT 16.8 10*3/uL (4.8-10.8)
[2024-05-16 04:18] LABS: POTASSIUM 4.3 mmol/L (3.4-5.1)
[2024-05-16] MEDS ORDERED: Ondansetron Hydrochloride 4 MG/2 ML VIAL IV ONE (04:20)
[2024-05-16 04:26] LABS: PLATELET SUFFICIENCY NORMAL (NORMAL); TOTAL CELLS COUNTED 100 #CELLS
[2024-05-16 04:27] LABS: BURR CELLS FEW; OVALOCYTES FEW
[2024-05-16] MEDS ORDERED: Pantoprazole Sodium 40 MG in SODIUM CHLORIDE 0.9% 50 ML IV SCH (04:35)
[2024-05-16] MEDS ORDERED: Pantoprazole Sodium 40 MG VIAL IV ONE ×2 (04:35)
[2024-05-16] MEDS ORDERED: SODIUM CHLORIDE 0.9% 50 ML IV ONE (05:06)
[2024-05-16] MEDS ORDERED: SODIUM CHLORIDE 0.9% 500 ML IV ONE (06:15)
[2024-05-16] MEDS ORDERED: ACETAMINOPHEN 650 MG SUPP R PRN (08:20)
[2024-05-16] MEDS ORDERED: Magnesium Hydroxide 30 ML UDC PO PRN (08:20)
[2024-05-16] MEDS ORDERED: BISACODYL 10 MG SUPP R PRN (08:20)
[2024-05-16] MEDS ORDERED: ACETAMINOPHEN 325 MG TAB PO PRN (08:20)
[2024-05-16] MEDS ORDERED: BISACODYL 5 MG TAB PO PRN (08:20)
[2024-05-16] MEDS ORDERED: Ondansetron Hydrochloride 4 MG/2 ML VIAL IV PRN (08:20)
[2024-05-16] MEDS ORDERED: HEPARIN SODIUM 5,000 UNIT/ML VIAL SC SCH (10:00)
[2024-05-16] MEDS ORDERED: SUCRALFATE 1 GM TAB PO SCH (10:00)
[2024-05-16] MEDS ORDERED: Acetaminophen/Hydrocodone 5 MG/325 MG TABLET PO PRN (10:30)
[2024-05-16] MEDS ORDERED: NOREPINEPHRINE BITARTRATE/D5W 250 ML IV SCH (11:50)
[2024-05-16] MEDS ORDERED: Albuterol Sulf/Ipratropium 3 ML VIAL NEB SCH (12:15)
[2024-05-16] MEDS ORDERED: Albuterol Sulfate 2.5 MG/3 ML VIAL NEB SCH (12:15)
[2024-05-16] MEDS ORDERED: DEXMEDETOMIDINE IN 0.9 % NACL 100 ML IV SCH (12:20)
[2024-05-16] MEDS ORDERED: AZITHROMYCIN 250 ML IV SCH (13:00)
[2024-05-16] MEDS ORDERED: Piperacillin Sodium/Tazobact 2.25 GM in SODIUM CHLORIDE 0.9% 50 ML IV SCH (14:00)
[2024-05-16] MEDS ORDERED: VANCOMYCIN/WATER FOR INJ (PEG) 150 ML IV SCH (15:00)
[2024-05-16] MEDS ORDERED: SODIUM CHLORIDE 0.9% 1,000 ML IV SCH (16:10)
[2024-05-16] MEDS ORDERED: VASOPRESSIN 100 ML IV SCH (16:25)
[2024-05-16] MEDS ORDERED: VASOPRESSIN 100 ML IV ONE (16:40)
[2024-05-16] MEDS ORDERED: DEXTROSE 10 % IN WATER 250 ML IV PRN (17:15)
[2024-05-16] MEDS ORDERED: Pantoprazole Sodium 40 MG VIAL IV SCH (18:00)
[2024-05-16] MEDS ORDERED: Succinylcholine Chloride 200 MG/10 ML SYRINGE IV ONE (21:01)
[2024-05-16] MEDS ORDERED: ETOMIDATE 20 MG/10 ML VIAL IV ONE (21:01)
[2024-05-16] MEDS ORDERED: INSULIN LISPRO 1 UNIT/0.01 ML SQ SCH (22:00)
[2024-05-17] MEDS ORDERED: Pantoprazole Sodium 40 MG TAB PO SCH (06:00)
== END 2024-05-16 20:51 | disposition hospice, inpatient (51) | DRG 871 ==
LOC: ED 23:31 → EDHOLD 05-16 07:05 → ICCU 05-16 07:05 → EDHOLD 05-16 07:07 → ICCU 05-16 08:40
PROVIDERS: Internal Medicine; ADMIT Internal Medicine; ATTEND Internal Medicine
PROC: 5A09357 Assistance with Respiratory Ventilation, Less than 24 Consecutive Hours, Continuous Positive Airway Pressure (ICD-10-PCS; principal; 2024-05-16)
PROC: 5A1935Z Respiratory Ventilation, Less than 24 Consecutive Hours (ICD-10-PCS; 2024-05-16)
PROC: 0BH17EZ Insertion of Endotracheal Airway into Trachea, Via Natural or Artificial Opening (ICD-10-PCS; 2024-05-16)
PROC: 30233N1 Transfusion of Nonautologous Red Blood Cells into Peripheral Vein, Percutaneous Approach (ICD-10-PCS; 2024-05-16)
DX: A41.9 Sepsis, unspecified organism (principal); E43 Unspecified severe protein-calorie malnutrition; N17.0 Acute kidney failure with tubular necrosis; J96.21 Acute and chronic respiratory failure with hypoxia; J18.9 Pneumonia, unspecified organism; K92.2 Gastrointestinal hemorrhage, unspecified; E87.1 Hypo-osmolality and hyponatremia; K22.10 Ulcer of esophagus without bleeding; K55.9 Vascular disorder of intestine, unspecified; N18.9 Chronic kidney disease, unspecified; D64.9 Anemia, unspecified; K44.9 Diaphragmatic hernia without obstruction or gangrene; R20.2 Paresthesia of skin; J44.9 Chronic obstructive pulmonary disease, unspecified; E78.5 Hyperlipidemia, unspecified; E11.22 Type 2 diabetes mellitus with diabetic chronic kidney disease; D47.3 Essential (hemorrhagic) thrombocythemia; S81.801A Unspecified open wound, right lower leg, initial encounter; X58.XXXA Exposure to other specified factors, initial encounter; N28.89 Other specified disorders of kidney and ureter; S81.802A Unspecified open wound, left lower leg, initial encounter; E11.65 Type 2 diabetes mellitus with hyperglycemia; E11.51 Type 2 diabetes mellitus with diabetic peripheral angiopathy without gangrene; Z88.2 Allergy status to sulfonamides; Z79.1 Long term (current) use of non-steroidal anti-inflammatories (NSAID); Z79.899 Other long term (current) drug therapy; Z88.8 Allergy status to other drugs, medicaments and biological substances; Z90.710 Acquired absence of both cervix and uterus; Z82.49 Family history of ischemic heart disease and other diseases of the circulatory system; Z80.1 Family history of malignant neoplasm of trachea, bronchus and lung; Y93.89 Activity, other specified; Y92.89 Other specified places as the place of occurrence of the external cause; Y99.8 Other external cause status; Z68.20 Body mass index [BMI] 20.0-20.9, adult; Z51.5 Encounter for palliative care

== ENCOUNTER 2024-05-16 20:54 | Inpatient (IN) | payer OTHER ==
[~2024-05-16] VITALS: Ht 152.4 cm; Wt 47.6 kg
[2024-05-16 21:00] VITALS: BP 84/36
[2024-05-16] MEDS ORDERED: MORPHINE Sulfate 2 MG/ML SYR IV PRN (21:05)
[2024-05-16] MEDS ORDERED: BISACODYL 10 MG SUPP R PRN (21:05)
[2024-05-16] MEDS ORDERED: ACETAMINOPHEN 650 MG SUPP R PRN (21:05)
[2024-05-16] MEDS ORDERED: DEXMEDETOMIDINE IN 0.9 % NACL 100 ML IV SCH (21:10)
[2024-05-16] MEDS ORDERED: ATROPINE SULFATE 1% 2 ML BOTTLE OPH PRN (21:10)
[2024-05-16] MEDS ORDERED: MORPHINE SULFATE IV SCH (22:00)
[2024-05-16] MEDS ORDERED: SODIUM CHLORIDE 0.9% IV SCH (22:00)
== END 2024-05-17 01:24 | DRG 871 ==
LOC: ICCU 20:54
PROVIDERS: ADMIT Internal Medicine; ATTEND Internal Medicine
DX: A41.9 Sepsis, unspecified organism (principal); E43 Unspecified severe protein-calorie malnutrition; J96.21 Acute and chronic respiratory failure with hypoxia; K22.11 Ulcer of esophagus with bleeding; K26.4 Chronic or unspecified duodenal ulcer with hemorrhage; N17.0 Acute kidney failure with tubular necrosis; K55.9 Vascular disorder of intestine, unspecified; R65.20 Severe sepsis without septic shock; J44.9 Chronic obstructive pulmonary disease, unspecified; E78.5 Hyperlipidemia, unspecified; E11.65 Type 2 diabetes mellitus with hyperglycemia; D64.9 Anemia, unspecified; K44.9 Diaphragmatic hernia without obstruction or gangrene; N18.32 Chronic kidney disease, stage 3b; I12.9 Hypertensive chronic kidney disease with stage 1 through stage 4 chronic kidney disease, or unspecified chronic kidney disease; E11.22 Type 2 diabetes mellitus with diabetic chronic kidney disease; Z79.4 Long term (current) use of insulin; Z68.20 Body mass index [BMI] 20.0-20.9, adult; Z79.899 Other long term (current) drug therapy; W18.39XA Other fall on same level, initial encounter; Y93.89 Activity, other specified; Y92.89 Other specified places as the place of occurrence of the external cause; Y99.8 Other external cause status